=== PATIENT | female | born 1985 | race Caucasian/White ===

== ENCOUNTER 2020-12-23 21:59 | Inpatient (IN) ==
[2020-12-23] MEDS ORDERED: *HR* Atropine Sulfate 1 MG/10 ML SYRINGE ONE (23:41)
[2020-12-23] MEDS ORDERED: Naloxone 0.4 MG/ML INJ IVP PRN (23:51)
[2020-12-24 00:11] LABS: Mean Corpuscular Volume 84.3 fL (83.0-100.0)
[2020-12-24 00:13] LABS: Basophils % 0.3 %; Hematocrit 20.9 % (35.3-44.9); Hemoglobin 6.4 g/dL (11.5-15.4); Immature Granulocytes % 8.3 % (0-4); Immature Platelets 13.9 % (1.1-6.1); Lymphocytes # 0.3 K/mcL (0.6-4.6); Lymphocytes % 3.9 %; Mean Corpuscular HGB Conc 30.6 g/dL (31.6-35.5); Mean Corpuscular Hemoglobin 25.8 pg (28.0-33.3); Monocytes # 0.3 K/mcL (0.0-1.3); Neutrophils # 7.4 K/mcL (1.6-8.9); Red Blood Count 2.48 M/mcL (3.82-4.97); Red Cell Distribution Width 21.1 % (11.5-14.5); Segmented Neutrophils % 84.5 %; White Blood Count 8.7 K/mcL (4.3-11.1)
[2020-12-24 00:19] LABS: VBG Ionized Calcium 1.24 mmol/L (1.15-1.35)
[2020-12-24 00:19] LABS: Platelet Count 4 K/mcL (140-400)
[2020-12-24 00:20] LABS: Activated Partial Thrombo Time 53.6 Seconds (26.0-36.0)
[2020-12-24] MEDS: Piperacillin/Tazobactam 3.375 GM in 0.9 % Sodium Chloride Mini Bag 100 ML IVPB SCH ×4 (00:20→23:18)
[2020-12-24 00:27] LABS: Albumin 2.4 g/dL (3.5-5.7); Bilirubin,Total 5.2 mg/dL (0.3-1.0); Calcium 7.6 mg/dL (8.6-10.3); Globulin 2.5 g/dL (2.4-3.5); Magnesium 1.5 mg/dL (1.6-2.6); Phosphorous 2.6 mg/dL (2.7-4.5); Potassium 3.9 mEq/L (3.5-5.1); Total Protein 4.9 g/dL (6.4-8.9)
[2020-12-24 00:31] LABS: INR 21.8
[2020-12-24 00:46] LABS: Basophilic Stippling 1+ (Not Present); Macrocytosis Present (Not Present); Microcytosis Present (Not Present); Platelet Estimate Marked Decrease (Normal); Poikilocytosis 1+ (Not Present)
[2020-12-24 00:47] LABS: Anisocytosis 2+ (Not Present); Polychromasia 1+ (Not Present)
[2020-12-24] MEDS: Azithromycin 500 MG in 0.9 % Sodium Chloride 250 ML IVPB SCH (01:18)
[2020-12-24] MEDS ORDERED: Isovue-370 500 ML BOTTLE IVP ONE (01:24)
[2020-12-24] MEDS ORDERED: 0.9 % Sodium Chloride 250 ML ONE ×3 (01:28→21:30)
[2020-12-24] MEDS: Pantoprazole 40 MG VIAL IVP SCH ×2 (06:19→18:06)
[2020-12-24] MEDS ORDERED: Perflutren Lipid Microsphere 1.3 ML in 0.9 % Sodium Chloride 8.7 ML IVP PRN (06:23)
[2020-12-24 06:38] LABS: Red Cell Distribution Width 19.9 % (11.5-14.5)
[2020-12-24 06:39] LABS: VBG Ionized Calcium 1.18 mmol/L (1.15-1.35)
[2020-12-24 06:40] LABS: Hematocrit 25.1 % (35.3-44.9); Hemoglobin 7.6 g/dL (11.5-15.4); Immature Platelets 12.4 % (1.1-6.1); Mean Corpuscular HGB Conc 30.3 g/dL (31.6-35.5); Mean Corpuscular Hemoglobin 25.5 pg (28.0-33.3); Mean Corpuscular Volume 84.2 fL (83.0-100.0); Red Blood Count 2.98 M/mcL (3.82-4.97); White Blood Count 10.7 K/mcL (4.3-11.1)
[2020-12-24 06:43] LABS: Platelet Count 6 K/mcL (140-400)
[2020-12-24 06:52] LABS: INR 3.7; Prothrombin Time 41.3 Seconds (9.4-12.1)
[2020-12-24 06:53] LABS: Calcium 7.6 mg/dL (8.6-10.3); Magnesium 2.1 mg/dL (1.6-2.6); Phosphorous 2.9 mg/dL (2.7-4.5)
[2020-12-24 06:54] LABS: Activated Partial Thrombo Time 37.3 Seconds (26.0-36.0)
[2020-12-24 06:58] LABS: Anisocytosis 2+ (Not Present); Lymphocytes # 0.2 K/mcL (0.6-4.6); Microcytosis Present (Not Present); Neutrophils # 10.5 K/mcL (1.6-8.9)
[2020-12-24 06:59] LABS: Burr Cells 1+ (Not Present); Platelet Estimate Marked Decrease (Normal); Poikilocytosis 2+ (Not Present); Target Cells 1+ (Not Present)
[2020-12-24 16:43] LABS: Hemoglobin 7.8 g/dL (11.5-15.4)
[2020-12-24 16:45] LABS: Hematocrit 24.3 % (35.3-44.9); Immature Platelets 10.8 % (1.1-6.1); Mean Corpuscular HGB Conc 32.1 g/dL (31.6-35.5); Mean Corpuscular Hemoglobin 26.2 pg (28.0-33.3); Mean Corpuscular Volume 81.5 fL (83.0-100.0); Red Blood Count 2.98 M/mcL (3.82-4.97); Red Cell Distribution Width 19.6 % (11.5-14.5)
[2020-12-24 16:54] LABS: INR 1.9; Prothrombin Time 21.5 Seconds (9.4-12.1)
[2020-12-24 16:54] LABS: VBG Ionized Calcium 1.22 mmol/L (1.15-1.35)
[2020-12-24 16:56] LABS: Platelet Count 4 K/mcL (140-400)
[2020-12-24 16:57] LABS: Activated Partial Thrombo Time 29.7 Seconds (26.0-36.0)
[2020-12-24 17:04] LABS: Calcium 7.9 mg/dL (8.6-10.3); Magnesium 2.2 mg/dL (1.6-2.6); Phosphorous 2.7 mg/dL (2.7-4.5); Potassium 3.8 mEq/L (3.5-5.1)
[2020-12-24 17:10] LABS: Lymphocytes # 1.3 K/mcL (0.6-4.6); Neutrophils # 7.7 K/mcL (1.6-8.9)
[2020-12-24 17:11] LABS: Platelet Estimate Marked Decrease (Normal); Reactive Lymphocytes Present (Not Present)
[2020-12-24 21:53] LABS: VBG HCO3 14 mEq/L (21-27); VBG PCO2 27 mmHg (41-51); VBG PH 7.32 pH Units (7.32-7.42); VBG PO2 131 mmHg (25-50)
[2020-12-25] MEDS: Azithromycin 500 MG in 0.9 % Sodium Chloride 250 ML IVPB SCH (00:52)
[2020-12-25 04:17] LABS: VBG HCO3 14 mEq/L (21-27); VBG Ionized Calcium 1.21 mmol/L (1.15-1.35); VBG PCO2 29 mmHg (41-51); VBG PO2 63 mmHg (25-50)
[2020-12-25 04:30] LABS: INR 1.5; Prothrombin Time 16.7 Seconds (9.4-12.1)
[2020-12-25 04:39] LABS: Basophils % 0.1 %; Hemoglobin 7.6 g/dL (11.5-15.4); Red Cell Distribution Width 19.9 % (11.5-14.5)
[2020-12-25 04:40] LABS: Hematocrit 23.6 % (35.3-44.9); Immature Granulocytes % 1.4 % (0-4); Immature Platelets 11.9 % (1.1-6.1); Lymphocytes # 0.4 K/mcL (0.6-4.6); Lymphocytes % 5.7 %; Mean Corpuscular HGB Conc 32.2 g/dL (31.6-35.5); Mean Corpuscular Hemoglobin 26.2 pg (28.0-33.3); Mean Corpuscular Volume 81.4 fL (83.0-100.0); Monocytes # 0.4 K/mcL (0.0-1.3); Monocytes % 5.2 %; Neutrophils # 6.2 K/mcL (1.6-8.9); Segmented Neutrophils % 87.6 %; White Blood Count 7.1 K/mcL (4.3-11.1)
[2020-12-25 04:43] LABS: Platelet Count 3 K/mcL (140-400)
[2020-12-25 05:00] LABS: Magnesium 2.4 mg/dL (1.6-2.6); Phosphorous 3.4 mg/dL (2.7-4.5)
[2020-12-25] MEDS: Pantoprazole 40 MG VIAL IVP SCH ×2 (05:52→17:14)
[2020-12-25] MEDS: Piperacillin/Tazobactam 3.375 GM in 0.9 % Sodium Chloride Mini Bag 100 ML IVPB SCH ×2 (08:02→16:35)
[2020-12-25] MEDS: Meropenem 1,000 MG in 0.9 % Sodium Chloride Mini Bag 100 ML IVPB SCH (17:14)
[2020-12-26] MEDS: Azithromycin 500 MG in 0.9 % Sodium Chloride 250 ML IVPB SCH (00:23)
[2020-12-26 04:09] LABS: Hematocrit 22.3 % (35.3-44.9); Hemoglobin 7.2 g/dL (11.5-15.4); Immature Granulocytes % 1.1 % (0-4); Immature Platelets 8.5 % (1.1-6.1); Lymphocytes # 0.3 K/mcL (0.6-4.6); Lymphocytes % 6.9 %; Mean Corpuscular HGB Conc 32.3 g/dL (31.6-35.5); Mean Corpuscular Hemoglobin 25.7 pg (28.0-33.3); Mean Corpuscular Volume 79.6 fL (83.0-100.0); Monocytes # 0.3 K/mcL (0.0-1.3); Monocytes % 7.2 %; Neutrophils # 3.9 K/mcL (1.6-8.9); Segmented Neutrophils % 84.8 %; White Blood Count 4.6 K/mcL (4.3-11.1)
[2020-12-26 04:10] LABS: Platelet Count 4 K/mcL (140-400)
[2020-12-26 04:15] LABS: INR 1.4; Prothrombin Time 16.5 Seconds (9.4-12.1)
[2020-12-26 04:27] LABS: Albumin 2.5 g/dL (3.5-5.7); Albumin/Globulin Ratio 1.2 (1.1-2.2); Calcium 8.2 mg/dL (8.6-10.3); Globulin 2.1 g/dL (2.4-3.5); Magnesium 2.3 mg/dL (1.6-2.6); Phosphorous 3.2 mg/dL (2.7-4.5); Potassium 3.6 mEq/L (3.5-5.1); Total Protein 4.6 g/dL (6.4-8.9)
[2020-12-26] MEDS: Pantoprazole 40 MG VIAL IVP SCH ×2 (05:40→18:26)
[2020-12-26] MEDS: Meropenem 1,000 MG in 0.9 % Sodium Chloride Mini Bag 100 ML IVPB SCH ×2 (05:42→18:26)
[2020-12-26 09:17] LABS: VBG Ionized Calcium 1.26 mmol/L (1.15-1.35)
[2020-12-27] MEDS: Azithromycin 500 MG in 0.9 % Sodium Chloride 250 ML IVPB SCH (02:07)
[2020-12-27 05:13] LABS: Eosinophils % 0.2 %; Hemoglobin 7.2 g/dL (11.5-15.4); Immature Granulocytes % 1.2 % (0-4); Red Cell Distribution Width 19.9 % (11.5-14.5)
[2020-12-27 05:14] LABS: Hematocrit 22.4 % (35.3-44.9); Immature Platelets 7.8 % (1.1-6.1); Lymphocytes # 0.5 K/mcL (0.6-4.6); Lymphocytes % 8.9 %; Mean Corpuscular HGB Conc 32.1 g/dL (31.6-35.5); Mean Corpuscular Hemoglobin 25.4 pg (28.0-33.3); Mean Corpuscular Volume 78.9 fL (83.0-100.0); Monocytes # 0.6 K/mcL (0.0-1.3); Monocytes % 10.6 %; Red Blood Count 2.84 M/mcL (3.82-4.97); Segmented Neutrophils % 79.1 %
[2020-12-27 05:16] LABS: Alanine Aminotransferase 8 Units/L (7-52); Albumin 2.4 g/dL (3.5-5.7); Alkaline Phosphatase 111 Units/L (34-104); Aspartate Amino Transferase 13 Units/L (13-39); BUN/Creatinine Ratio 62 (6-26); Bilirubin,Total 6.1 mg/dL (0.3-1.0); Blood Urea Nitrogen 56 mg/dL (6-20); Calcium 7.9 mg/dL (8.6-10.3); Carbon Dioxide 15 mEq/L (23-29); Chloride 121 mEq/L (98-107); Globulin 2.4 g/dL (2.4-3.5); Glucose 112 mg/dL (70-105); Magnesium 1.6 mg/dL (1.6-2.6); Osmolality,Calculated 316 (280-300); Phosphorous 2.6 mg/dL (2.7-4.5); Sodium 145 mEq/L (136-145); Total Protein 4.8 g/dL (6.4-8.9); eGFR For African Americans > 60 (> 60); eGFR For Non-African Americans > 60 (> 60)
[2020-12-27 05:19] LABS: Platelet Count 5 K/mcL (140-400)
[2020-12-27 05:20] LABS: Neutrophils # 4.8 K/mcL (1.6-8.9)
[2020-12-27 05:22] LABS: INR 1.6; Prothrombin Time 18.3 Seconds (9.4-12.1)
[2020-12-27] MEDS ORDERED: Potassium Phosphate 44 MEQ in 0.9 % Sodium Chloride 250 ML IVPB ONE (05:23)
[2020-12-27 05:57] LABS: Anisocytosis 1+ (Not Present); Platelet Estimate Marked Decrease (Normal)
[2020-12-27] MEDS: Meropenem 1,000 MG in 0.9 % Sodium Chloride Mini Bag 100 ML IVPB SCH (06:21)
[2020-12-27] MEDS: Pantoprazole 40 MG VIAL IVP SCH ×3 (06:21→20:24)
[2020-12-27] MEDS ORDERED: Gentamicin 350 MG in 0.9 % Sodium Chloride 100 ML IVPB SCH (14:00)
[2020-12-27] MEDS ORDERED: Perflutren Lipid Microsphere 1.3 ML in 0.9 % Sodium Chloride 8.7 ML IVP PRN (17:57)
[2020-12-27] MEDS ORDERED: Naloxone 0.4 MG/ML INJ IVP PRN (17:57)
[2020-12-27] MEDS ORDERED: Ertapenem 1,000 MG in 0.9 % Sodium Chloride Mini Bag 100 ML IVPB SCH (18:00)
[2020-12-28 02:25] LABS: Hemoglobin 6.9 g/dL (11.5-15.4); Mean Corpuscular Volume 78.9 fL (83.0-100.0)
[2020-12-28 02:27] LABS: Hematocrit 20.9 % (35.3-44.9); Immature Platelets 19.4 % (1.1-6.1); Red Blood Count 2.65 M/mcL (3.82-4.97); Red Cell Distribution Width 19.9 % (11.5-14.5); White Blood Count 6.1 K/mcL (4.3-11.1)
[2020-12-28 02:32] LABS: Platelet Count 5 K/mcL (140-400)
[2020-12-28 02:38] LABS: INR 1.6; Prothrombin Time 18.5 Seconds (9.4-12.1)
[2020-12-28 02:44] LABS: BUN/Creatinine Ratio 48 (6-26); Blood Urea Nitrogen 33 mg/dL (6-20); Calcium 7.2 mg/dL (8.6-10.3); Carbon Dioxide 15 mEq/L (23-29); Chloride 114 mEq/L (98-107); Glucose 92 mg/dL (70-105); Osmolality,Calculated 291 (280-300); Potassium 3.2 mEq/L (3.5-5.1); Sodium 137 mEq/L (136-145); eGFR For African Americans > 60 (> 60); eGFR For Non-African Americans > 60 (> 60)
[2020-12-28 04:06] LABS: Gentamicin,Random 5.4 mcg/mL
[2020-12-28] MEDS: Pantoprazole 40 MG VIAL IVP SCH ×2 (04:44→18:07)
[2020-12-28] MEDS ORDERED: Potassium Chloride 40 MEQ, Lidocaine 1% 2 ML in 0.9 % Sodium Chloride 500 ML IVPB ONE (07:54)
[2020-12-28] MEDS ORDERED: Isovue-370 500 ML BOTTLE IVP ONE (13:51)
[2020-12-28] MEDS ORDERED: 0.9 % Sodium Chloride 250 ML ONE (13:57)
[2020-12-28] MEDS ORDERED: Gentamicin 350 MG in 0.9 % Sodium Chloride 100 ML IVPB SCH (14:00)
[2020-12-28] MEDS: Ertapenem 1,000 MG in 0.9 % Sodium Chloride Mini Bag 100 ML IVPB SCH (18:08)
[2020-12-28] MEDS ORDERED: Saline Nasal Spray 44 ML BOTTLE NS PRN (21:55)
[2020-12-28] MEDS: QUEtiapine Fumarate 100 MG TABLET PO SCH (23:00)
[2020-12-29] MEDS: Pantoprazole 40 MG VIAL IVP SCH (06:29)
[2020-12-29 07:50] LABS: Eosinophils % 0.8 %; Immature Granulocytes % 1.5 % (0-4); Red Cell Distribution Width 18.6 % (11.5-14.5); White Blood Count 4.7 K/mcL (4.3-11.1)
[2020-12-29 07:51] LABS: Hematocrit 21.7 % (35.3-44.9); Hemoglobin 7.2 g/dL (11.5-15.4); Immature Platelets 23.7 % (1.1-6.1); Lymphocytes # 0.4 K/mcL (0.6-4.6); Lymphocytes % 9.3 %; Mean Corpuscular HGB Conc 33.2 g/dL (31.6-35.5); Mean Corpuscular Hemoglobin 26.5 pg (28.0-33.3); Mean Corpuscular Volume 79.8 fL (83.0-100.0); Monocytes # 0.6 K/mcL (0.0-1.3); Red Blood Count 2.72 M/mcL (3.82-4.97); Segmented Neutrophils % 75.4 %
[2020-12-29 08:00] LABS: INR 1.6; Prothrombin Time 18.7 Seconds (9.4-12.1)
[2020-12-29 08:11] LABS: BUN/Creatinine Ratio 28 (6-26); Blood Urea Nitrogen 19 mg/dL (6-20); Calcium 7.2 mg/dL (8.6-10.3); Carbon Dioxide 15 mEq/L (23-29); Chloride 112 mEq/L (98-107); Glucose 97 mg/dL (70-105); Osmolality,Calculated 280 (280-300); Potassium 3.5 mEq/L (3.5-5.1); Sodium 134 mEq/L (136-145); eGFR For African Americans > 60 (> 60); eGFR For Non-African Americans > 60 (> 60)
[2020-12-29 08:13] LABS: Neutrophils # 3.5 K/mcL (1.6-8.9)
[2020-12-29 08:14] LABS: Platelet Count 8 K/mcL (140-400)
[2020-12-29 08:15] LABS: Anisocytosis 1+ (Not Present); Hypochromasia Present (Not Present); Platelet Estimate Marked Decrease (Normal)
[2020-12-29 08:16] LABS: Poikilocytosis 1+ (Not Present)
[2020-12-29] MEDS: Gentamicin 350 MG in 0.9 % Sodium Chloride 100 ML IVPB SCH (15:32)
[2020-12-29] MEDS: Ertapenem 1,000 MG in 0.9 % Sodium Chloride Mini Bag 100 ML IVPB SCH (17:36)
[2020-12-29] MEDS ORDERED: Ibuprofen 800 MG TABLET PO PRN (21:53)
[2020-12-29] MEDS: QUEtiapine Fumarate 100 MG TABLET PO SCH (22:06)
[2020-12-30 03:26] LABS: Eosinophils # 0.1 K/mcL (0.0-0.6); Eosinophils % 1.3 %; Hematocrit 21.1 % (35.3-44.9); Hemoglobin 6.8 g/dL (11.5-15.4); Immature Granulocytes % 0.7 % (0-4); Lymphocytes # 0.5 K/mcL (0.6-4.6); Lymphocytes % 7.5 %; Mean Corpuscular HGB Conc 32.2 g/dL (31.6-35.5); Mean Corpuscular Hemoglobin 26.4 pg (28.0-33.3); Mean Corpuscular Volume 81.8 fL (83.0-100.0); Monocytes # 0.5 K/mcL (0.0-1.3); Monocytes % 8.9 %; Neutrophils # 4.9 K/mcL (1.6-8.9); Red Blood Count 2.58 M/mcL (3.82-4.97); Segmented Neutrophils % 81.6 %
[2020-12-30 03:28] LABS: Platelet Count 10 K/mcL (140-400)
[2020-12-30 03:48] LABS: BUN/Creatinine Ratio 23 (6-26); Blood Urea Nitrogen 15 mg/dL (6-20); Calcium 7.4 mg/dL (8.6-10.3); Carbon Dioxide 13 mEq/L (23-29); Chloride 112 mEq/L (98-107); Glucose 70 mg/dL (70-105); Osmolality,Calculated 277 (280-300); Potassium 3.7 mEq/L (3.5-5.1); Sodium 134 mEq/L (136-145); eGFR For African Americans > 60 (> 60); eGFR For Non-African Americans > 60 (> 60)
[2020-12-30 03:52] LABS: INR 1.6; Prothrombin Time 17.7 Seconds (9.4-12.1)
[2020-12-30] MEDS ORDERED: 0.9 % Sodium Chloride 250 ML ONE (10:14)
[2020-12-30] MEDS ORDERED: Isovue-370 500 ML BOTTLE IVP ONE (14:23)
[2020-12-30 15:33] LABS: Hemoglobin 7.8 g/dL (11.5-15.4)
[2020-12-30 15:35] LABS: Hematocrit 24.2 % (35.3-44.9)
[2020-12-30] MEDS: Ertapenem 1,000 MG in 0.9 % Sodium Chloride Mini Bag 100 ML IVPB SCH (17:54)
[2020-12-30] MEDS: QUEtiapine Fumarate 100 MG TABLET PO SCH (19:50)
[2020-12-31 04:24] LABS: Basophils % 0.1 %; Eosinophils % 0.4 %; Hematocrit 21.7 % (35.3-44.9); Hemoglobin 7.2 g/dL (11.5-15.4); Immature Granulocytes % 0.6 % (0-4); Immature Platelets 25.2 % (1.1-6.1); Lymphocytes # 0.5 K/mcL (0.6-4.6); Lymphocytes % 6.5 %; Mean Corpuscular HGB Conc 33.2 g/dL (31.6-35.5); Mean Corpuscular Hemoglobin 26.9 pg (28.0-33.3); Monocytes # 0.6 K/mcL (0.0-1.3); Monocytes % 7.9 %; Neutrophils # 6.1 K/mcL (1.6-8.9); Red Blood Count 2.68 M/mcL (3.82-4.97); Red Cell Distribution Width 18.3 % (11.5-14.5); Segmented Neutrophils % 84.5 %; White Blood Count 7.2 K/mcL (4.3-11.1)
[2020-12-31 04:26] LABS: Platelet Count 11 K/mcL (140-400)
[2020-12-31 12:34] LABS: BUN/Creatinine Ratio 16 (6-26); Blood Urea Nitrogen 13 mg/dL (6-20); Calcium 7.4 mg/dL (8.6-10.3); Carbon Dioxide 14 mEq/L (23-29); Chloride 108 mEq/L (98-107); Glucose 83 mg/dL (70-105); Osmolality,Calculated 267 (280-300); Sodium 129 mEq/L (136-145); eGFR For African Americans > 60 (> 60); eGFR For Non-African Americans > 60 (> 60)
[2020-12-31] MEDS: Gentamicin 350 MG in 0.9 % Sodium Chloride 100 ML IVPB SCH (14:13)
[2020-12-31] MEDS: Ertapenem 1,000 MG in 0.9 % Sodium Chloride Mini Bag 100 ML IVPB SCH (18:15)
[2020-12-31] MEDS: QUEtiapine Fumarate 100 MG TABLET PO SCH (20:36)
[2021-01-01 10:41] LABS: Immature Granulocytes % 0.5 % (0-4)
[2021-01-01 10:43] LABS: Basophils % 0.1 %; Eosinophils % 0.5 %; Hemoglobin 6.8 g/dL (11.5-15.4); Lymphocytes # 0.5 K/mcL (0.6-4.6); Lymphocytes % 6.5 %; Mean Corpuscular HGB Conc 32.4 g/dL (31.6-35.5); Mean Corpuscular Hemoglobin 26.4 pg (28.0-33.3); Mean Corpuscular Volume 81.4 fL (83.0-100.0); Monocytes # 0.5 K/mcL (0.0-1.3); Monocytes % 6.4 %; Neutrophils # 6.7 K/mcL (1.6-8.9); Red Blood Count 2.58 M/mcL (3.82-4.97); Red Cell Distribution Width 18.6 % (11.5-14.5); White Blood Count 7.8 K/mcL (4.3-11.1)
[2021-01-01 10:59] LABS: INR 1.8; Prothrombin Time 20.4 Seconds (9.4-12.1)
[2021-01-01 11:00] LABS: Albumin 2.3 g/dL (3.5-5.7); Albumin/Globulin Ratio 0.9 (1.1-2.2); Bilirubin,Direct 4.1 mg/dL (0.0-0.2); Bilirubin,Indirect 2.2 mg/dL (0.0-1.0); Bilirubin,Total 6.3 mg/dL (0.3-1.0); Globulin 2.7 g/dL (2.4-3.5)
[2021-01-01 11:39] LABS: BUN/Creatinine Ratio 19 (6-26); Blood Urea Nitrogen 13 mg/dL (6-20); Calcium 7.4 mg/dL (8.6-10.3); Carbon Dioxide 14 mEq/L (23-29); Chloride 111 mEq/L (98-107); Glucose 89 mg/dL (70-105); Osmolality,Calculated 276 (280-300); Sodium 133 mEq/L (136-145); eGFR For African Americans > 60 (> 60); eGFR For Non-African Americans > 60 (> 60)
[2021-01-01 11:48] LABS: Platelet Count 13 K/mcL (140-400)
[2021-01-01 11:51] LABS: Platelet Estimate Marked Decrease (Normal)
[2021-01-01 11:52] LABS: Anisocytosis 1+ (Not Present); Hypochromasia Present (Not Present); Poikilocytosis 1+ (Not Present)
[2021-01-01] MEDS ORDERED: 0.9 % Sodium Chloride 250 ML ONE (15:23)
[2021-01-01] MEDS: Ertapenem 1,000 MG in 0.9 % Sodium Chloride Mini Bag 100 ML IVPB SCH (18:12)
[2021-01-01] MEDS: QUEtiapine Fumarate 100 MG TABLET PO SCH (22:09)
[2021-01-02 03:21] LABS: Basophils % 0.1 %; Eosinophils % 0.3 %; Immature Granulocytes % 0.6 % (0-4); Lymphocytes % 4.8 %
[2021-01-02 03:23] LABS: Hematocrit 26.3 % (35.3-44.9); Immature Platelets 19.5 % (1.1-6.1); Lymphocytes # 0.5 K/mcL (0.6-4.6); Mean Corpuscular HGB Conc 34.2 g/dL (31.6-35.5); Mean Corpuscular Volume 81.9 fL (83.0-100.0); Monocytes # 0.6 K/mcL (0.0-1.3); Monocytes % 6.2 %; Neutrophils # 8.9 K/mcL (1.6-8.9); Red Blood Count 3.21 M/mcL (3.82-4.97); Red Cell Distribution Width 17.4 % (11.5-14.5); White Blood Count 10.1 K/mcL (4.3-11.1)
[2021-01-02 03:28] LABS: Platelet Count 16 K/mcL (140-400)
[2021-01-02 03:33] LABS: INR 1.7; Prothrombin Time 19.5 Seconds (9.4-12.1)
[2021-01-02 03:37] LABS: BUN/Creatinine Ratio 16 (6-26); Blood Urea Nitrogen 11 mg/dL (6-20); Calcium 7.5 mg/dL (8.6-10.3); Carbon Dioxide 14 mEq/L (23-29); Chloride 111 mEq/L (98-107); Glucose 98 mg/dL (70-105); Osmolality,Calculated 271 (280-300); Potassium 3.8 mEq/L (3.5-5.1); Sodium 131 mEq/L (136-145); eGFR For African Americans > 60 (> 60); eGFR For Non-African Americans > 60 (> 60)
[2021-01-02] MEDS ORDERED: Oxymetazoline Nasal SPRAY BOTTLE NS PRN (11:28)
[2021-01-02] MEDS: Gentamicin 350 MG in 0.9 % Sodium Chloride 100 ML IVPB SCH (13:34)
[2021-01-02] MEDS: Ertapenem 1,000 MG in 0.9 % Sodium Chloride Mini Bag 100 ML IVPB SCH (17:24)
[2021-01-02] MEDS: QUEtiapine Fumarate 100 MG TABLET PO SCH (20:31)
[2021-01-03 03:07] LABS: Basophils % 0.1 %; Eosinophils % 0.3 %; Hemoglobin 8.3 g/dL (11.5-15.4); Mean Corpuscular Hemoglobin 27.8 pg (28.0-33.3); Red Blood Count 2.99 M/mcL (3.82-4.97)
[2021-01-03 03:09] LABS: Immature Granulocytes % 0.5 % (0-4); Immature Platelets 21.2 % (1.1-6.1); Lymphocytes # 0.5 K/mcL (0.6-4.6); Lymphocytes % 6.8 %; Mean Corpuscular HGB Conc 33.2 g/dL (31.6-35.5); Mean Corpuscular Volume 83.6 fL (83.0-100.0); Monocytes # 0.5 K/mcL (0.0-1.3); Monocytes % 6.8 %; Neutrophils # 6.3 K/mcL (1.6-8.9); Red Cell Distribution Width 17.7 % (11.5-14.5); Segmented Neutrophils % 85.5 %; White Blood Count 7.4 K/mcL (4.3-11.1)
[2021-01-03 03:14] LABS: INR 1.7; Platelet Count 19 K/mcL (140-400); Prothrombin Time 19.6 Seconds (9.4-12.1)
[2021-01-03 03:18] LABS: BUN/Creatinine Ratio 15 (6-26); Blood Urea Nitrogen 11 mg/dL (6-20); Calcium 7.4 mg/dL (8.6-10.3); Carbon Dioxide 14 mEq/L (23-29); Chloride 111 mEq/L (98-107); Glucose 103 mg/dL (70-105); Osmolality,Calculated 276 (280-300); Potassium 3.8 mEq/L (3.5-5.1); Sodium 133 mEq/L (136-145); eGFR For African Americans > 60 (> 60); eGFR For Non-African Americans > 60 (> 60)
[2021-01-03] MEDS: Ertapenem 1,000 MG in 0.9 % Sodium Chloride Mini Bag 100 ML IVPB SCH (16:56)
[2021-01-03] MEDS: *HR* LORazepam 0.5 MG TABLET PO PRN (18:23)
[2021-01-03] MEDS: QUEtiapine Fumarate 100 MG TABLET PO SCH (19:52)
[2021-01-04] MEDS: Multivit/Ca/Min/Fe/FA 1 TAB TABLET PO SCH (08:41)
[2021-01-04] MEDS: *HR* LORazepam 0.5 MG TABLET PO PRN (08:44)
[2021-01-04] MEDS: Menthol 1 EACH LOZENGE PO PRN (14:39)
[2021-01-04] MEDS: diazePAM 5 MG TABLET PO PRN ×2 (14:39→22:48)
[2021-01-04] MEDS: Ertapenem 1,000 MG in 0.9 % Sodium Chloride Mini Bag 100 ML IVPB SCH (17:02)
[2021-01-04] MEDS: levoFLOXacin 750 MG/150 ML 750 MG/150 ML BAG IVPB SCH (18:08)
[2021-01-04] MEDS: QUEtiapine Fumarate 100 MG TABLET PO SCH (19:45)
[2021-01-05] MEDS: Ipratropium/Albuterol Neb 3 ML IH PRN ×3 (00:33→22:22)
[2021-01-05 04:24] LABS: Basophils % 0.3 %; Eosinophils % 0.3 %; Hematocrit 22.7 % (35.3-44.9); Hemoglobin 7.4 g/dL (11.5-15.4); Immature Granulocytes % 0.8 % (0-4); Immature Platelets 18.2 % (1.1-6.1); Lymphocytes # 0.4 K/mcL (0.6-4.6); Lymphocytes % 10.5 %; Mean Corpuscular HGB Conc 32.6 g/dL (31.6-35.5); Mean Corpuscular Hemoglobin 27.4 pg (28.0-33.3); Mean Corpuscular Volume 84.1 fL (83.0-100.0); Monocytes # 0.4 K/mcL (0.0-1.3); Monocytes % 10.7 %; Nucleated Red Blood Cells 0.5 /100 WBC (0); Red Cell Distribution Width 17.7 % (11.5-14.5); Segmented Neutrophils % 77.4 %; White Blood Count 3.9 K/mcL (4.3-11.1)
[2021-01-05 04:28] LABS: Platelet Count 17 K/mcL (140-400)
[2021-01-05 04:43] LABS: BUN/Creatinine Ratio 12 (6-26); Blood Urea Nitrogen 8 mg/dL (6-20); Calcium 7.2 mg/dL (8.6-10.3); Carbon Dioxide 15 mEq/L (23-29); Chloride 109 mEq/L (98-107); Glucose 82 mg/dL (70-105); Osmolality,Calculated 269 (280-300); Potassium 3.5 mEq/L (3.5-5.1); Sodium 131 mEq/L (136-145); eGFR For African Americans > 60 (> 60); eGFR For Non-African Americans > 60 (> 60)
[2021-01-05 05:07] LABS: Platelet Estimate Slight Decrease (Normal)
[2021-01-05] MEDS: Multivit/Ca/Min/Fe/FA 1 TAB TABLET PO SCH (07:57)
[2021-01-05] MEDS: diazePAM 5 MG TABLET PO PRN ×2 (11:30→20:09)
[2021-01-05] MEDS: Ertapenem 1,000 MG in 0.9 % Sodium Chloride Mini Bag 100 ML IVPB SCH (16:30)
[2021-01-05] MEDS: levoFLOXacin 750 MG/150 ML 750 MG/150 ML BAG IVPB SCH (16:30)
[2021-01-05 17:44] LABS: Albumin 2.4 g/dL (3.5-5.7); Albumin/Globulin Ratio 0.7 (1.1-2.2); Bilirubin,Direct 3.2 mg/dL (0.0-0.2); Bilirubin,Indirect 2.6 mg/dL (0.0-1.0); Bilirubin,Total 5.8 mg/dL (0.3-1.0); Globulin 3.3 g/dL (2.4-3.5); Total Protein 5.7 g/dL (6.4-8.9)
[2021-01-05] MEDS: QUEtiapine Fumarate 100 MG TABLET PO SCH (20:09)
[2021-01-06] MEDS: Multivit/Ca/Min/Fe/FA 1 TAB TABLET PO SCH (07:38)
[2021-01-06] MEDS: diazePAM 5 MG TABLET PO PRN ×3 (07:40→23:00)
[2021-01-06] MEDS ORDERED: Lidocaine -MPF 1% 5 ML AMPUL INFILT ONE (09:53)
[2021-01-06] MEDS: Ipratropium/Albuterol Neb 3 ML IH SCH ×2 (10:13→16:55)
[2021-01-06 11:12] LABS: Basophils % 0.5 %; Hematocrit 19.6 % (35.3-44.9); Hemoglobin 6.5 g/dL (11.5-15.4); Lymphocytes # 0.3 K/mcL (0.6-4.6); Mean Corpuscular HGB Conc 33.2 g/dL (31.6-35.5); Mean Corpuscular Hemoglobin 27.7 pg (28.0-33.3); Mean Corpuscular Volume 83.4 fL (83.0-100.0); Monocytes # 0.2 K/mcL (0.0-1.3); Monocytes % 10.6 %; Red Blood Count 2.35 M/mcL (3.82-4.97); Red Cell Distribution Width 17.8 % (11.5-14.5); Segmented Neutrophils % 73.9 %; White Blood Count 2.1 K/mcL (4.3-11.1)
[2021-01-06 11:14] LABS: Neutrophils # 1.6 K/mcL (1.6-8.9)
[2021-01-06 11:16] LABS: Platelet Count 20 K/mcL (140-400)
[2021-01-06] MEDS: Menthol 1 EACH LOZENGE PO PRN ×2 (11:19→18:26)
[2021-01-06 11:32] LABS: BUN/Creatinine Ratio 10 (6-26); Blood Urea Nitrogen 9 mg/dL (6-20); Calcium 7.3 mg/dL (8.6-10.3); Carbon Dioxide 15 mEq/L (23-29); Chloride 110 mEq/L (98-107); Glucose 110 mg/dL (70-105); Osmolality,Calculated 275 (280-300); Potassium 3.3 mEq/L (3.5-5.1); Sodium 133 mEq/L (136-145); eGFR For African Americans > 60 (> 60); eGFR For Non-African Americans > 60 (> 60)
[2021-01-06 12:36] LABS: Adenovirus Not Detected (Not Detect); Coronavirus 229E Not Detected (Not Detect); Coronavirus HKU1 Not Detected (Not Detect); Coronavirus NL63 Not Detected (Not Detect); Coronavirus OC43 Not Detected (Not Detect)
[2021-01-06] MEDS ORDERED: 0.9 % Sodium Chloride 250 ML ONE ×2 (12:36→16:02)
[2021-01-06 12:37] LABS: Bordetella Pertussis Not Detected (Not Detect); Chlamydophila pneumoniae Not Detected (Not Detect); Human Metapneumovirus Not Detected (Not Detect); Human Rhinovirus/Enterovirus Not Detected (Not Detect); Influenza A Subtype 2009 H1 Not Detected (Not Detect); Influenza B Not Detected (Not Detect); Mycoplasma pneumoniae Not Detected (Not Detect); Parainfluenza Virus 1 Not Detected (Not Detect); Parainfluenza Virus 2 Not Detected (Not Detect); Parainfluenza Virus 3 Not Detected (Not Detect); Parainfluenza Virus 4 Not Detected (Not Detect); Respiratory Syncytial Virus Not Detected (Not Detect)
[2021-01-06 12:43] LABS: SARS-CoV-2 DETECTED (Not Detect)
[2021-01-06] MEDS ORDERED: Potassium Chloride 40 MEQ, Lidocaine 1% 2 ML in 0.9 % Sodium Chloride 500 ML IVPB ONE (17:00)
[2021-01-06] MEDS: Ertapenem 1,000 MG in 0.9 % Sodium Chloride Mini Bag 100 ML IVPB SCH (18:02)
[2021-01-06] MEDS: levoFLOXacin 750 MG/150 ML 750 MG/150 ML BAG IVPB SCH (18:07)
[2021-01-06] MEDS: Pantoprazole 40 MG VIAL IVP SCH (18:13)
[2021-01-06] MEDS ORDERED: Ipratropium 1 PUFF INHALER IH ONE (18:52)
[2021-01-06] MEDS: QUEtiapine Fumarate 100 MG TABLET PO SCH (19:57)
[2021-01-06] MEDS: Ipratropium 1 PUFF INHALER IH SCH (22:21)
[2021-01-07] MEDS: Ipratropium 1 PUFF INHALER IH SCH ×4 (03:11→20:38)
[2021-01-07] MEDS: Pantoprazole 40 MG VIAL IVP SCH ×2 (06:45→19:52)
[2021-01-07] MEDS ORDERED: Nitroglycerin 0.4 MG TAB.SUBL SL PRN (08:44)
[2021-01-07] MEDS: Multivit/Ca/Min/Fe/FA 1 TAB TABLET PO SCH (11:29)
[2021-01-07 14:43] LABS: Basophils % 0.5 %
[2021-01-07 14:45] LABS: Hematocrit 21.4 % (35.3-44.9); Hemoglobin 6.9 g/dL (11.5-15.4); Lymphocytes # 0.5 K/mcL (0.6-4.6); Lymphocytes % 23.8 %; Mean Corpuscular HGB Conc 32.2 g/dL (31.6-35.5); Mean Corpuscular Hemoglobin 27.5 pg (28.0-33.3); Mean Corpuscular Volume 85.3 fL (83.0-100.0); Monocytes % 11.7 %; Neutrophils # 1.3 K/mcL (1.6-8.9); Red Blood Count 2.51 M/mcL (3.82-4.97); Red Cell Distribution Width 17.6 % (11.5-14.5); White Blood Count 2.1 K/mcL (4.3-11.1)
[2021-01-07 14:52] LABS: Monocytes # 0.3 K/mcL (0.0-1.3); Platelet Count 17 K/mcL (140-400)
[2021-01-07 15:00] LABS: BUN/Creatinine Ratio 9 (6-26); Blood Urea Nitrogen 8 mg/dL (6-20); Calcium 7.5 mg/dL (8.6-10.3); Carbon Dioxide 15 mEq/L (23-29); Chloride 112 mEq/L (98-107); Glucose 88 mg/dL (70-105); Osmolality,Calculated 274 (280-300); Potassium 3.9 mEq/L (3.5-5.1); Sodium 133 mEq/L (136-145); eGFR For African Americans > 60 (> 60); eGFR For Non-African Americans > 60 (> 60)
[2021-01-07 15:21] LABS: Platelet Estimate Marked Decrease (Normal)
[2021-01-07] MEDS: diazePAM 5 MG TABLET PO PRN (16:41)
[2021-01-07] MEDS: Ertapenem 1,000 MG in 0.9 % Sodium Chloride Mini Bag 100 ML IVPB SCH (16:41)
[2021-01-07] MEDS: levoFLOXacin 750 MG/150 ML 750 MG/150 ML BAG IVPB SCH (18:02)
[2021-01-07] MEDS: QUEtiapine Fumarate 100 MG TABLET PO SCH (19:53)
[2021-01-07] MEDS: Benzonatate 100 MG CAPSULE PO PRN (20:00)
[2021-01-08] MEDS: diazePAM 5 MG TABLET PO PRN ×3 (00:46→21:18)
[2021-01-08 01:11] LABS: Hemoglobin 7.3 g/dL (11.5-15.4); Red Cell Distribution Width 17.6 % (11.5-14.5)
[2021-01-08 01:13] LABS: Basophils % 0.5 %; Eosinophils % 0.5 %; Hematocrit 22.8 % (35.3-44.9); Immature Granulocytes % 0.5 % (0-4); Lymphocytes # 0.4 K/mcL (0.6-4.6); Lymphocytes % 22.5 %; Mean Corpuscular Hemoglobin 27.1 pg (28.0-33.3); Mean Corpuscular Volume 84.8 fL (83.0-100.0); Monocytes # 0.2 K/mcL (0.0-1.3); Monocytes % 9.9 %; Neutrophils # 1.2 K/mcL (1.6-8.9); Red Blood Count 2.69 M/mcL (3.82-4.97); Segmented Neutrophils % 66.1 %; White Blood Count 1.8 K/mcL (4.3-11.1)
[2021-01-08 01:24] LABS: BUN/Creatinine Ratio 8 (6-26); Blood Urea Nitrogen 7 mg/dL (6-20); C-Reactive Protein 40 mg/L (Less than 10); Calcium 7.1 mg/dL (8.6-10.3); Carbon Dioxide 14 mEq/L (23-29); Chloride 111 mEq/L (98-107); Glucose 82 mg/dL (70-105); Osmolality,Calculated 271 (280-300); Potassium 3.5 mEq/L (3.5-5.1); Sodium 132 mEq/L (136-145); eGFR For African Americans > 60 (> 60); eGFR For Non-African Americans > 60 (> 60)
[2021-01-08 01:30] LABS: Platelet Count 17 K/mcL (140-400)
[2021-01-08] MEDS: Ipratropium 1 PUFF INHALER IH SCH ×4 (04:06→20:36)
[2021-01-08] MEDS: Pantoprazole 40 MG VIAL IVP SCH ×2 (06:02→18:15)
[2021-01-08] MEDS: Benzonatate 100 MG CAPSULE PO PRN ×2 (06:26→21:16)
[2021-01-08] MEDS: Multivit/Ca/Min/Fe/FA 1 TAB TABLET PO SCH (09:07)
[2021-01-08] MEDS: *HR* OxyCODONE/APAP 5/325 TABLET PO PRN ×2 (11:56→21:16)
[2021-01-08] MEDS: Ertapenem 1,000 MG in 0.9 % Sodium Chloride Mini Bag 100 ML IVPB SCH (18:23)
[2021-01-08] MEDS: levoFLOXacin 750 MG/150 ML 750 MG/150 ML BAG IVPB SCH (18:25)
[2021-01-08] MEDS: QUEtiapine Fumarate 100 MG TABLET PO SCH (21:16)
[2021-01-09] MEDS: Ipratropium 1 PUFF INHALER IH SCH ×4 (03:19→20:27)
[2021-01-09 04:49] LABS: Basophils % 0.5 %; Eosinophils % 0.9 %; Hematocrit 23.9 % (35.3-44.9); Hemoglobin 7.7 g/dL (11.5-15.4); Immature Granulocytes % 0.9 % (0-4); Lymphocytes # 0.5 K/mcL (0.6-4.6); Lymphocytes % 21.7 %; Mean Corpuscular HGB Conc 32.2 g/dL (31.6-35.5); Mean Corpuscular Hemoglobin 27.5 pg (28.0-33.3); Mean Corpuscular Volume 85.4 fL (83.0-100.0); Monocytes # 0.2 K/mcL (0.0-1.3); Monocytes % 8.5 %; Neutrophils # 1.4 K/mcL (1.6-8.9); Red Cell Distribution Width 17.7 % (11.5-14.5); Segmented Neutrophils % 67.5 %; White Blood Count 2.1 K/mcL (4.3-11.1)
[2021-01-09 04:52] LABS: Platelet Count 21 K/mcL (140-400)
[2021-01-09 05:04] LABS: BUN/Creatinine Ratio 10 (6-26); Blood Urea Nitrogen 9 mg/dL (6-20); Calcium 7.3 mg/dL (8.6-10.3); Carbon Dioxide 16 mEq/L (23-29); Chloride 111 mEq/L (98-107); Glucose 75 mg/dL (70-105); Osmolality,Calculated 273 (280-300); Potassium 3.7 mEq/L (3.5-5.1); Sodium 133 mEq/L (136-145); eGFR For African Americans > 60 (> 60); eGFR For Non-African Americans > 60 (> 60)
[2021-01-09] MEDS: Pantoprazole 40 MG VIAL IVP SCH ×2 (05:48→17:13)
[2021-01-09] MEDS: Multivit/Ca/Min/Fe/FA 1 TAB TABLET PO SCH (07:27)
[2021-01-09] MEDS: *HR* OxyCODONE/APAP 5/325 TABLET PO PRN ×2 (07:27→17:56)
[2021-01-09] MEDS: diazePAM 5 MG TABLET PO PRN ×2 (07:38→20:20)
[2021-01-09] MEDS: levoFLOXacin 750 MG/150 ML 750 MG/150 ML BAG IVPB SCH (17:13)
[2021-01-09] MEDS: Ertapenem 1,000 MG in 0.9 % Sodium Chloride Mini Bag 100 ML IVPB SCH (17:14)
[2021-01-09] MEDS: Benzonatate 100 MG CAPSULE PO PRN (17:56)
[2021-01-09] MEDS: QUEtiapine Fumarate 100 MG TABLET PO SCH (20:20)
[2021-01-10 01:49] LABS: Basophils % 0.4 %; Eosinophils % 0.4 %; Mean Corpuscular Volume 84.8 fL (83.0-100.0)
[2021-01-10 01:51] LABS: Hematocrit 23.5 % (35.3-44.9); Hemoglobin 7.4 g/dL (11.5-15.4); Immature Granulocytes % 0.4 % (0-4); Immature Platelets 9.4 % (1.1-6.1); Lymphocytes # 0.6 K/mcL (0.6-4.6); Lymphocytes % 25.1 %; Mean Corpuscular HGB Conc 31.5 g/dL (31.6-35.5); Mean Corpuscular Hemoglobin 26.7 pg (28.0-33.3); Monocytes # 0.2 K/mcL (0.0-1.3); Neutrophils # 1.6 K/mcL (1.6-8.9); Red Blood Count 2.77 M/mcL (3.82-4.97); Red Cell Distribution Width 17.7 % (11.5-14.5); Segmented Neutrophils % 66.7 %; White Blood Count 2.4 K/mcL (4.3-11.1)
[2021-01-10 01:55] LABS: Platelet Count 20 K/mcL (140-400)
[2021-01-10 02:10] LABS: BUN/Creatinine Ratio 10 (6-26); Blood Urea Nitrogen 9 mg/dL (6-20); Carbon Dioxide 14 mEq/L (23-29); Chloride 112 mEq/L (98-107); Glucose 75 mg/dL (70-105); Osmolality,Calculated 273 (280-300); Potassium 3.4 mEq/L (3.5-5.1); Sodium 133 mEq/L (136-145); eGFR For African Americans > 60 (> 60); eGFR For Non-African Americans > 60 (> 60)
[2021-01-10] MEDS: Ipratropium 1 PUFF INHALER IH SCH ×4 (04:35→21:46)
[2021-01-10] MEDS: Pantoprazole 40 MG VIAL IVP SCH ×2 (05:09→16:47)
[2021-01-10] MEDS: *HR* OxyCODONE/APAP 5/325 TABLET PO PRN (05:51)
[2021-01-10] MEDS: Menthol 1 EACH LOZENGE PO PRN (05:51)
[2021-01-10] MEDS: Multivit/Ca/Min/Fe/FA 1 TAB TABLET PO SCH (08:15)
[2021-01-10] MEDS: diazePAM 5 MG TABLET PO PRN ×2 (08:26→20:30)
[2021-01-10] MEDS: levoFLOXacin 750 MG/150 ML 750 MG/150 ML BAG IVPB SCH (16:48)
[2021-01-10] MEDS: Ertapenem 1,000 MG in 0.9 % Sodium Chloride Mini Bag 100 ML IVPB SCH (16:48)
[2021-01-10] MEDS: QUEtiapine Fumarate 100 MG TABLET PO SCH (20:30)
[2021-01-10] MEDS: *HR* OxyCODONE/APAP 7.5/325 TABLET PO PRN (20:30)
[2021-01-10] MEDS: Benzonatate 100 MG CAPSULE PO PRN (20:38)
[2021-01-11] MEDS: Ipratropium 1 PUFF INHALER IH SCH ×4 (04:02→21:38)
[2021-01-11] MEDS: Pantoprazole 40 MG VIAL IVP SCH ×2 (05:03→16:35)
[2021-01-11] MEDS: Multivit/Ca/Min/Fe/FA 1 TAB TABLET PO SCH (08:45)
[2021-01-11] MEDS: diazePAM 5 MG TABLET PO PRN ×2 (08:55→20:16)
[2021-01-11] MEDS: *HR* OxyCODONE/APAP 7.5/325 TABLET PO PRN ×2 (09:02→20:16)
[2021-01-11 16:05] LABS: Hematocrit 25.6 % (35.3-44.9); Hemoglobin 8.1 g/dL (11.5-15.4); Mean Corpuscular HGB Conc 31.6 g/dL (31.6-35.5)
[2021-01-11 16:06] LABS: Basophils % 0.3 %; Eosinophils % 0.6 %; Immature Granulocytes % 0.9 % (0-4); Immature Platelets 10.6 % (1.1-6.1); Lymphocytes # 0.7 K/mcL (0.6-4.6); Lymphocytes % 21.4 %; Mean Corpuscular Hemoglobin 26.8 pg (28.0-33.3); Mean Corpuscular Volume 84.8 fL (83.0-100.0); Monocytes # 0.3 K/mcL (0.0-1.3); Monocytes % 7.4 %; Red Blood Count 3.02 M/mcL (3.82-4.97); Red Cell Distribution Width 17.8 % (11.5-14.5); Segmented Neutrophils % 69.4 %; White Blood Count 3.4 K/mcL (4.3-11.1)
[2021-01-11 16:11] LABS: Neutrophils # 2.4 K/mcL (1.6-8.9)
[2021-01-11 16:15] LABS: Platelet Count 24 K/mcL (140-400)
[2021-01-11 16:30] LABS: BUN/Creatinine Ratio 10 (6-26); Blood Urea Nitrogen 9 mg/dL (6-20); Calcium 7.7 mg/dL (8.6-10.3); Carbon Dioxide 16 mEq/L (23-29); Chloride 113 mEq/L (98-107); Glucose 86 mg/dL (70-105); Osmolality,Calculated 276 (280-300); Potassium 3.5 mEq/L (3.5-5.1); Sodium 134 mEq/L (136-145); eGFR For African Americans > 60 (> 60); eGFR For Non-African Americans > 60 (> 60)
[2021-01-11] MEDS: Ertapenem 1,000 MG in 0.9 % Sodium Chloride Mini Bag 100 ML IVPB SCH (16:36)
[2021-01-11] MEDS: levoFLOXacin 750 MG/150 ML 750 MG/150 ML BAG IVPB SCH (16:50)
[2021-01-11] MEDS: QUEtiapine Fumarate 100 MG TABLET PO SCH (20:16)
[2021-01-11] MEDS: Benzonatate 100 MG CAPSULE PO PRN (20:16)
[2021-01-11] MEDS: lamoTRIgine 25 MG TABLET PO SCH (21:39)
[2021-01-12] MEDS: Menthol 1 EACH LOZENGE PO PRN (02:14)
[2021-01-12 02:40] LABS: Basophils % 0.3 %; Hemoglobin 7.8 g/dL (11.5-15.4)
[2021-01-12 02:42] LABS: Eosinophils % 0.9 %; Hematocrit 24.4 % (35.3-44.9); Immature Granulocytes % 0.6 % (0-4); Immature Platelets 8.8 % (1.1-6.1); Lymphocytes # 0.8 K/mcL (0.6-4.6); Lymphocytes % 23.7 %; Mean Corpuscular Hemoglobin 27.3 pg (28.0-33.3); Mean Corpuscular Volume 85.3 fL (83.0-100.0); Monocytes # 0.2 K/mcL (0.0-1.3); Monocytes % 6.9 %; Red Blood Count 2.86 M/mcL (3.82-4.97); Red Cell Distribution Width 18.1 % (11.5-14.5); Segmented Neutrophils % 67.6 %; White Blood Count 3.2 K/mcL (4.3-11.1)
[2021-01-12 02:44] LABS: Neutrophils # 2.2 K/mcL (1.6-8.9)
[2021-01-12 02:46] LABS: Platelet Count 23 K/mcL (140-400)
[2021-01-12 02:57] LABS: BUN/Creatinine Ratio 11 (6-26); Blood Urea Nitrogen 10 mg/dL (6-20); Calcium 7.5 mg/dL (8.6-10.3); Carbon Dioxide 15 mEq/L (23-29); Chloride 111 mEq/L (98-107); Glucose 95 mg/dL (70-105); Osmolality,Calculated 275 (280-300); Potassium 3.4 mEq/L (3.5-5.1); Sodium 133 mEq/L (136-145); eGFR For African Americans > 60 (> 60); eGFR For Non-African Americans > 60 (> 60)
[2021-01-12] MEDS: Ipratropium 1 PUFF INHALER IH SCH ×4 (04:02→21:44)
[2021-01-12] MEDS: Pantoprazole 40 MG VIAL IVP SCH (05:47)
[2021-01-12] MEDS ORDERED: Aspirin 81 MG TAB.CHEW PO SCH (09:00)
[2021-01-12] MEDS: lamoTRIgine 25 MG TABLET PO SCH (09:50)
[2021-01-12] MEDS: Ertapenem 1,000 MG in 0.9 % Sodium Chloride Mini Bag 100 ML IVPB SCH (09:51)
[2021-01-12] MEDS: Multivit/Ca/Min/Fe/FA 1 TAB TABLET PO SCH (09:51)
[2021-01-12] MEDS: Benzonatate 100 MG CAPSULE PO PRN ×2 (10:08→20:47)
[2021-01-12] MEDS: *HR* OxyCODONE/APAP 7.5/325 TABLET PO PRN ×2 (10:16→20:47)
[2021-01-12] MEDS: diazePAM 5 MG TABLET PO PRN ×2 (10:16→20:47)
[2021-01-12] MEDS: levoFLOXacin 750 MG/150 ML 750 MG/150 ML BAG IVPB SCH (17:46)
[2021-01-12] MEDS: QUEtiapine Fumarate 100 MG TABLET PO SCH (20:47)
[2021-01-13] MEDS: Ipratropium 1 PUFF INHALER IH SCH ×4 (03:45→20:32)
[2021-01-13] MEDS: Multivit/Ca/Min/Fe/FA 1 TAB TABLET PO SCH (09:40)
[2021-01-13] MEDS: Ertapenem 1,000 MG in 0.9 % Sodium Chloride Mini Bag 100 ML IVPB SCH (09:43)
[2021-01-13] MEDS: *HR* OxyCODONE/APAP 7.5/325 TABLET PO PRN ×2 (09:46→21:09)
[2021-01-13] MEDS: diazePAM 5 MG TABLET PO PRN ×2 (09:46→21:08)
[2021-01-13 10:36] LABS: Basophils % 0.3 %
[2021-01-13 10:38] LABS: Eosinophils % 0.9 %; Hematocrit 24.2 % (35.3-44.9); Hemoglobin 7.7 g/dL (11.5-15.4); Immature Granulocytes % 1.9 % (0-4); Immature Platelets 10.3 % (1.1-6.1); Lymphocytes # 0.7 K/mcL (0.6-4.6); Lymphocytes % 23.1 %; Mean Corpuscular HGB Conc 31.8 g/dL (31.6-35.5); Mean Corpuscular Hemoglobin 27.5 pg (28.0-33.3); Mean Corpuscular Volume 86.4 fL (83.0-100.0); Monocytes # 0.2 K/mcL (0.0-1.3); Monocytes % 5.9 %; Neutrophils # 2.2 K/mcL (1.6-8.9); Red Cell Distribution Width 18.2 % (11.5-14.5); Segmented Neutrophils % 67.9 %; White Blood Count 3.2 K/mcL (4.3-11.1)
[2021-01-13 10:41] LABS: BUN/Creatinine Ratio 11 (6-26); Blood Urea Nitrogen 9 mg/dL (6-20); Calcium 7.6 mg/dL (8.6-10.3); Carbon Dioxide 16 mEq/L (23-29); Chloride 113 mEq/L (98-107); Glucose 98 mg/dL (70-105); Osmolality,Calculated 279 (280-300); Potassium 3.4 mEq/L (3.5-5.1); Sodium 135 mEq/L (136-145); eGFR For African Americans > 60 (> 60); eGFR For Non-African Americans > 60 (> 60)
[2021-01-13 11:15] LABS: Platelet Count 24 K/mcL (140-400)
[2021-01-13] MEDS ORDERED: Potassium Chloride Elixir 20 MEQ/15 ML UDC PO ONE (12:52)
[2021-01-13] MEDS: levoFLOXacin 750 MG/150 ML 750 MG/150 ML BAG IVPB SCH (17:18)
[2021-01-13] MEDS: Benzonatate 100 MG CAPSULE PO PRN (21:08)
[2021-01-13] MEDS: QUEtiapine Fumarate 100 MG TABLET PO SCH (21:08)
[2021-01-14] MEDS: Ipratropium 1 PUFF INHALER IH SCH ×5 (04:49→22:33)
[2021-01-14 05:31] LABS: BUN/Creatinine Ratio 11 (6-26); Blood Urea Nitrogen 9 mg/dL (6-20); Calcium 7.9 mg/dL (8.6-10.3); Carbon Dioxide 16 mEq/L (23-29); Chloride 112 mEq/L (98-107); Glucose 107 mg/dL (70-105); Osmolality,Calculated 277 (280-300); Potassium 3.8 mEq/L (3.5-5.1); Sodium 134 mEq/L (136-145); eGFR For African Americans > 60 (> 60); eGFR For Non-African Americans > 60 (> 60)
[2021-01-14 05:32] LABS: Basophils % 0.3 %; Hemoglobin 7.8 g/dL (11.5-15.4); Segmented Neutrophils % 69.2 %
[2021-01-14 05:34] LABS: Eosinophils % 1.1 %; Hematocrit 24.3 % (35.3-44.9); Immature Granulocytes % 1.1 % (0-4); Immature Platelets 11.1 % (1.1-6.1); Lymphocytes # 0.8 K/mcL (0.6-4.6); Lymphocytes % 21.4 %; Mean Corpuscular HGB Conc 32.1 g/dL (31.6-35.5); Mean Corpuscular Volume 87.1 fL (83.0-100.0); Monocytes # 0.3 K/mcL (0.0-1.3); Monocytes % 6.9 %; Neutrophils # 2.5 K/mcL (1.6-8.9); Red Blood Count 2.79 M/mcL (3.82-4.97); Red Cell Distribution Width 18.8 % (11.5-14.5); White Blood Count 3.6 K/mcL (4.3-11.1)
[2021-01-14 07:06] LABS: Platelet Count 25 K/mcL (140-400)
[2021-01-14] MEDS: *HR* OxyCODONE/APAP 7.5/325 TABLET PO PRN ×2 (08:42→16:42)
[2021-01-14] MEDS: Multivit/Ca/Min/Fe/FA 1 TAB TABLET PO SCH (08:43)
[2021-01-14] MEDS: diazePAM 5 MG TABLET PO PRN ×2 (08:43→21:10)
[2021-01-14] MEDS: Ertapenem 1,000 MG in 0.9 % Sodium Chloride Mini Bag 100 ML IVPB SCH (08:43)
[2021-01-14] MEDS: levoFLOXacin 750 MG/150 ML 750 MG/150 ML BAG IVPB SCH (16:32)
[2021-01-14] MEDS: Sennosides/Docusate Sodium TABLET PO SCH (18:14)
[2021-01-14] MEDS: QUEtiapine Fumarate 100 MG TABLET PO SCH (21:10)
[2021-01-14] MEDS: Benzonatate 100 MG CAPSULE PO PRN (21:10)
[2021-01-15] MEDS: Ipratropium 1 PUFF INHALER IH SCH ×5 (04:46→22:13)
[2021-01-15 05:34] LABS: BUN/Creatinine Ratio 10 (6-26); Blood Urea Nitrogen 8 mg/dL (6-20); Calcium 7.8 mg/dL (8.6-10.3); Carbon Dioxide 15 mEq/L (23-29); Chloride 110 mEq/L (98-107); Glucose 90 mg/dL (70-105); Osmolality,Calculated 274 (280-300); Potassium 3.8 mEq/L (3.5-5.1); Sodium 133 mEq/L (136-145); eGFR For African Americans > 60 (> 60); eGFR For Non-African Americans > 60 (> 60)
[2021-01-15 05:59] LABS: Hemoglobin 8.1 g/dL (11.5-15.4)
[2021-01-15 06:01] LABS: Basophils % 0.2 %; Eosinophils % 0.8 %; Hematocrit 25.1 % (35.3-44.9); Immature Granulocytes % 1.2 % (0-4); Immature Platelets 9.3 % (1.1-6.1); Lymphocytes # 0.8 K/mcL (0.6-4.6); Mean Corpuscular HGB Conc 32.3 g/dL (31.6-35.5); Mean Corpuscular Volume 86.9 fL (83.0-100.0); Monocytes # 0.4 K/mcL (0.0-1.3); Monocytes % 7.9 %; Neutrophils # 3.8 K/mcL (1.6-8.9); Red Blood Count 2.89 M/mcL (3.82-4.97); Red Cell Distribution Width 18.9 % (11.5-14.5); Segmented Neutrophils % 73.9 %; White Blood Count 5.2 K/mcL (4.3-11.1)
[2021-01-15 06:28] LABS: Platelet Count 29 K/mcL (140-400)
[2021-01-15] MEDS: Ertapenem 1,000 MG in 0.9 % Sodium Chloride Mini Bag 100 ML IVPB SCH (09:18)
[2021-01-15] MEDS: *HR* OxyCODONE/APAP 7.5/325 TABLET PO PRN ×2 (09:18→17:30)
[2021-01-15] MEDS: Sennosides/Docusate Sodium TABLET PO SCH (09:18)
[2021-01-15] MEDS: Multivit/Ca/Min/Fe/FA 1 TAB TABLET PO SCH (09:18)
[2021-01-15] MEDS: diazePAM 5 MG TABLET PO PRN (10:25)
[2021-01-15] MEDS: levoFLOXacin 750 MG/150 ML 750 MG/150 ML BAG IVPB SCH (22:02)
[2021-01-15] MEDS: QUEtiapine Fumarate 100 MG TABLET PO SCH (22:03)
[2021-01-16] MEDS: *HR* OxyCODONE/APAP 7.5/325 TABLET PO PRN ×3 (01:43→20:16)
[2021-01-16 01:50] LABS: Basophils % 0.3 %; Hemoglobin 8.3 g/dL (11.5-15.4)
[2021-01-16 01:51] LABS: Eosinophils % 0.4 %; Immature Granulocytes % 0.6 % (0-4); Immature Platelets 8.4 % (1.1-6.1); Lymphocytes # 0.9 K/mcL (0.6-4.6); Lymphocytes % 13.2 %; Mean Corpuscular HGB Conc 31.9 g/dL (31.6-35.5); Mean Corpuscular Hemoglobin 27.5 pg (28.0-33.3); Mean Corpuscular Volume 86.1 fL (83.0-100.0); Monocytes # 0.5 K/mcL (0.0-1.3); Monocytes % 7.7 %; Neutrophils # 5.2 K/mcL (1.6-8.9); Red Blood Count 3.02 M/mcL (3.82-4.97); Red Cell Distribution Width 18.9 % (11.5-14.5); Segmented Neutrophils % 77.8 %; White Blood Count 6.7 K/mcL (4.3-11.1)
[2021-01-16 01:58] LABS: BUN/Creatinine Ratio 13 (6-26); Blood Urea Nitrogen 10 mg/dL (6-20); Calcium 7.9 mg/dL (8.6-10.3); Carbon Dioxide 16 mEq/L (23-29); Chloride 109 mEq/L (98-107); Glucose 88 mg/dL (70-105); Osmolality,Calculated 274 (280-300); Potassium 3.6 mEq/L (3.5-5.1); Sodium 133 mEq/L (136-145); eGFR For African Americans > 60 (> 60); eGFR For Non-African Americans > 60 (> 60)
[2021-01-16 02:01] LABS: Platelet Count 28 K/mcL (140-400)
[2021-01-16] MEDS: Ipratropium 1 PUFF INHALER IH SCH ×4 (04:29→22:50)
[2021-01-16] MEDS: Sennosides/Docusate Sodium TABLET PO SCH (09:56)
[2021-01-16] MEDS: Multivit/Ca/Min/Fe/FA 1 TAB TABLET PO SCH (09:56)
[2021-01-16] MEDS: Ertapenem 1,000 MG in 0.9 % Sodium Chloride Mini Bag 100 ML IVPB SCH (09:56)
[2021-01-16] MEDS ORDERED: 0.9 % Sodium Chloride 500 ML IVC ONE (11:45)
[2021-01-16] MEDS: levoFLOXacin 750 MG/150 ML 750 MG/150 ML BAG IVPB SCH (17:59)
[2021-01-16] MEDS: diazePAM 5 MG TABLET PO PRN (17:59)
[2021-01-16] MEDS: QUEtiapine Fumarate 100 MG TABLET PO SCH (20:16)
[2021-01-17] MEDS: Ipratropium 1 PUFF INHALER IH SCH ×2 (04:07→11:18)
[2021-01-17 04:36] LABS: BUN/Creatinine Ratio 12 (6-26); Blood Urea Nitrogen 13 mg/dL (6-20); Calcium 7.9 mg/dL (8.6-10.3); Carbon Dioxide 17 mEq/L (23-29); Chloride 112 mEq/L (98-107); Glucose 106 mg/dL (70-105); Osmolality,Calculated 283 (280-300); Potassium 3.4 mEq/L (3.5-5.1); Sodium 136 mEq/L (136-145); eGFR For African Americans > 60 (> 60); eGFR For Non-African Americans 59 (> 60)
[2021-01-17 05:54] LABS: Basophils % 0.3 %; Eosinophils % 0.9 %; Hematocrit 16.6 % (35.3-44.9); Immature Granulocytes % 0.9 % (0-4); Lymphocytes # 0.6 K/mcL (0.6-4.6); Lymphocytes % 18.1 %; Mean Corpuscular HGB Conc 30.1 g/dL (31.6-35.5); Mean Corpuscular Hemoglobin 27.3 pg (28.0-33.3); Mean Corpuscular Volume 90.7 fL (83.0-100.0); Monocytes # 0.3 K/mcL (0.0-1.3); Monocytes % 8.6 %; Neutrophils # 2.4 K/mcL (1.6-8.9); Nucleated Red Blood Cells 0.9 /100 WBC (0); Red Blood Count 1.83 M/mcL (3.82-4.97); Red Cell Distribution Width 19.3 % (11.5-14.5); Segmented Neutrophils % 71.2 %; White Blood Count 3.4 K/mcL (4.3-11.1)
[2021-01-17 06:04] LABS: Platelet Count 17 K/mcL (140-400)
[2021-01-17 06:49] VITALS: PULSE 89
[2021-01-17] MEDS: Multivit/Ca/Min/Fe/FA 1 TAB TABLET PO SCH (08:25)
[2021-01-17] MEDS: *HR* OxyCODONE/APAP 7.5/325 TABLET PO PRN (08:25)
[2021-01-17] MEDS: Sennosides/Docusate Sodium TABLET PO SCH (08:27)
[2021-01-17 08:55] LABS: Mean Corpuscular Volume 86.4 fL (83.0-100.0)
[2021-01-17 08:57] LABS: Basophils % 0.4 %; Eosinophils # 0.1 K/mcL (0.0-0.6); Eosinophils % 1.2 %; Hematocrit 23.5 % (35.3-44.9); Hemoglobin 7.4 g/dL (11.5-15.4); Immature Platelets 7.6 % (1.1-6.1); Lymphocytes # 0.8 K/mcL (0.6-4.6); Lymphocytes % 16.1 %; Mean Corpuscular HGB Conc 31.5 g/dL (31.6-35.5); Mean Corpuscular Hemoglobin 27.2 pg (28.0-33.3); Monocytes # 0.4 K/mcL (0.0-1.3); Neutrophils # 3.8 K/mcL (1.6-8.9); Red Blood Count 2.72 M/mcL (3.82-4.97); Red Cell Distribution Width 19.2 % (11.5-14.5); Segmented Neutrophils % 74.3 %; White Blood Count 5.1 K/mcL (4.3-11.1)
[2021-01-17 09:03] LABS: Platelet Count 27 K/mcL (140-400)
[2021-01-17 09:24] LABS: Platelet Estimate Marked Decrease (Normal)
[2021-01-17] MEDS: Ertapenem 1,000 MG in 0.9 % Sodium Chloride Mini Bag 100 ML IVPB SCH (10:38)
[2021-01-17 11:13] VITALS: BP 95/64; TEMP 97.7; O2SAT 94
[2021-01-17 13:18] LABS: Hemoglobin 8.1 g/dL (11.5-15.4); Immature Granulocytes % 0.7 % (0-4)
[2021-01-17 13:20] LABS: Basophils % 0.1 %; Eosinophils % 0.4 %; Hematocrit 25.8 % (35.3-44.9); Immature Platelets 7.7 % (1.1-6.1); Lymphocytes # 0.7 K/mcL (0.6-4.6); Lymphocytes % 9.5 %; Mean Corpuscular HGB Conc 31.4 g/dL (31.6-35.5); Mean Corpuscular Hemoglobin 27.2 pg (28.0-33.3); Mean Corpuscular Volume 86.6 fL (83.0-100.0); Monocytes # 0.5 K/mcL (0.0-1.3); Monocytes % 6.4 %; Neutrophils # 6.2 K/mcL (1.6-8.9); Red Blood Count 2.98 M/mcL (3.82-4.97); Red Cell Distribution Width 19.5 % (11.5-14.5); Segmented Neutrophils % 82.9 %; White Blood Count 7.5 K/mcL (4.3-11.1)
[2021-01-17 13:25] LABS: Platelet Count 25 K/mcL (140-400)
[2021-01-17] MEDS ORDERED: diazePAM 5 MG TABLET PO ONE (14:39)
[2021-01-17 14:46] LABS: Platelet Estimate Marked Decrease (Normal)
== END 2021-01-17 16:18 | DRG 206 ==
LOC: SUATTDRO 23:36 → ICNU 23:36 → 2NENU 12-27 22:37 → 3ANU 01-15 18:48
PROVIDERS: ADMIT Internal Medicine; ATTEND Family Medicine

== ENCOUNTER 2021-01-24 23:12 | Inpatient (IN) ==
[2021-01-24] MEDS ORDERED: 0.9 % Sodium Chloride 1,000 ML IVC ONE (23:26)
[2021-01-25 00:21] LABS: Basophils % 0.2 %; Eosinophils % 0.2 %; Hemoglobin 8.4 g/dL (11.5-15.4); Immature Granulocytes % 0.9 % (0-4); Immature Platelets 12.7 % (1.1-6.1); Lymphocytes # 0.9 K/mcL (0.6-4.6); Lymphocytes % 7.3 %; Mean Corpuscular HGB Conc 32.3 g/dL (31.6-35.5); Mean Corpuscular Hemoglobin 28.6 pg (28.0-33.3); Mean Corpuscular Volume 88.4 fL (83.0-100.0); Monocytes # 1.1 K/mcL (0.0-1.3); Monocytes % 8.9 %; Neutrophils # 10.3 K/mcL (1.6-8.9); Red Blood Count 2.94 M/mcL (3.82-4.97); Red Cell Distribution Width 19.8 % (11.5-14.5); Segmented Neutrophils % 82.5 %; White Blood Count 12.5 K/mcL (4.3-11.1)
[2021-01-25 00:26] LABS: Platelet Count 30 K/mcL (140-400)
[2021-01-25 00:29] LABS: Bacteria,Urine Few per hpf (None-Few); Bilirubin,Urine Negative (Negative); Blood,Urine Negative (Negative); Clarity,Urine Turbid (Clear); Color,Urine Yellow (Yellow); Glucose,Urine (UA) Normal (Normal); Hyaline Casts,Urine Few per lpf (None Seen); Ketones,Urine Negative (Negative); Leukocyte Esterase,Urine Large (Negative); Mucus,Urine Few per lpf (None-Few); Nitrite,Urine Negative (Negative); Protein,Urine Trace mg/dL (Neg-Trace); RBC,Urine 0-3 per hpf (0-3); Specific Gravity,Urine 1.018 (1.010-1.025); Squamous Epithelial Cell,Urine Few per hpf (None-Few); WBC,Urine 15-30 per hpf (0-3)
[2021-01-25 00:33] LABS: Alanine Aminotransferase 18 Units/L (7-52); Albumin 2.9 g/dL (3.5-5.7); Albumin/Globulin Ratio 0.9 (1.1-2.2); Alkaline Phosphatase 317 Units/L (34-104); Aspartate Amino Transferase 59 Units/L (13-39); BUN/Creatinine Ratio 22 (6-26); Bilirubin,Direct 1.1 mg/dL (0.0-0.2); Bilirubin,Indirect 1.4 mg/dL (0.0-1.0); Bilirubin,Total 2.5 mg/dL (0.3-1.0); Blood Urea Nitrogen 20 mg/dL (6-20); Calcium 8.2 mg/dL (8.6-10.3); Carbon Dioxide 16 mEq/L (23-29); Chloride 105 mEq/L (98-107); Globulin 3.1 g/dL (2.4-3.5); Glucose 93 mg/dL (70-105); Magnesium 1.5 mg/dL (1.6-2.6); Osmolality,Calculated 272 (280-300); Potassium 4.2 mEq/L (3.5-5.1); Sodium 130 mEq/L (136-145); Troponin I < 0.03 ng/mL (< 0.04); eGFR For African Americans > 60 (> 60); eGFR For Non-African Americans > 60 (> 60)
[2021-01-25] MEDS ORDERED: 0.9 % Sodium Chloride 1,000 ML ONE (01:43)
[2021-01-25] MEDS ORDERED: 0.9 % Sodium Chloride 1,000 ML IV ONE (01:48)
[2021-01-25] MEDS ORDERED: Ondansetron ODT 4 MG TAB.RAPDIS SL PRN (03:49)
[2021-01-25] MEDS ORDERED: Melatonin 3 MG TABLET PO PRN (03:49)
[2021-01-25] MEDS ORDERED: Naloxone 0.4 MG/ML INJ IVP PRN (03:49)
[2021-01-25] MEDS ORDERED: Isovue-370 500 ML BOTTLE IVP ONE (03:54)
[2021-01-25] MEDS ORDERED: 0.9 % Sodium Chloride 500 ML IVC ONE (04:29)
[2021-01-25 05:05] LABS: Hemoglobin 6.7 g/dL (11.5-15.4); Immature Platelets 8.1 % (1.1-6.1); Mean Corpuscular HGB Conc 31.9 g/dL (31.6-35.5); Mean Corpuscular Hemoglobin 28.3 pg (28.0-33.3); Mean Corpuscular Volume 88.6 fL (83.0-100.0); Red Blood Count 2.37 M/mcL (3.82-4.97); White Blood Count 7.9 K/mcL (4.3-11.1)
[2021-01-25 05:10] LABS: INR 1.7; Prothrombin Time 18.5 Seconds (9.4-12.1)
[2021-01-25 05:13] LABS: Platelet Count 30 K/mcL (140-400)
[2021-01-25 05:18] LABS: Albumin 2.4 g/dL (3.5-5.7); Bilirubin,Direct 1.4 mg/dL (0.0-0.2); Bilirubin,Total 2.4 mg/dL (0.3-1.0); Globulin 2.5 g/dL (2.4-3.5); Total Protein 4.9 g/dL (6.4-8.9)
[2021-01-25 05:19] LABS: BUN/Creatinine Ratio 22 (6-26); Blood Urea Nitrogen 18 mg/dL (6-20); Calcium 7.5 mg/dL (8.6-10.3); Carbon Dioxide 18 mEq/L (23-29); Chloride 112 mEq/L (98-107); Glucose 114 mg/dL (70-105); Osmolality,Calculated 287 (280-300); Phosphorous 4.2 mg/dL (2.7-4.5); Sodium 137 mEq/L (136-145); eGFR For African Americans > 60 (> 60); eGFR For Non-African Americans > 60 (> 60)
[2021-01-25] MEDS ORDERED: 0.9 % Sodium Chloride 250 ML IVC SCH (05:30)
[2021-01-25] MEDS: Norepinephrine 4 MG/254 ML IV.SOLN IVC SCH ×2 (06:35→09:48)
[2021-01-25] MEDS: Calcium Gluconate 1gm/50mL 1 GM/50 ML BAG IVPB SCH ×2 (06:40→07:35)
[2021-01-25] MEDS: levoFLOXacin 750 MG/150 ML 750 MG/150 ML BAG IVPB SCH (07:44)
[2021-01-25] MEDS: Albumin Human 5% 12.5 GM/250 ML IV.SOLN IVC SCH ×2 (08:57→11:30)
[2021-01-25] MEDS: Ertapenem 1,000 MG in 0.9 % Sodium Chloride Mini Bag 100 ML IVPB SCH (09:40)
[2021-01-25] MEDS: Micafungin 100 MG in 0.9 % Sodium Chloride Mini Bag 100 ML IVPB SCH (13:19)
[2021-01-25] MEDS ORDERED: 0.9 % Sodium Chloride 250 ML ONE (18:04)
[2021-01-25 19:02] LABS: Hematocrit 21.9 % (35.3-44.9); Hemoglobin 6.9 g/dL (11.5-15.4); Mean Corpuscular HGB Conc 31.5 g/dL (31.6-35.5); Mean Corpuscular Hemoglobin 27.8 pg (28.0-33.3); Mean Corpuscular Volume 88.3 fL (83.0-100.0); Red Blood Count 2.48 M/mcL (3.82-4.97); Red Cell Distribution Width 20.1 % (11.5-14.5); White Blood Count 4.9 K/mcL (4.3-11.1)
[2021-01-25 19:04] LABS: Platelet Count 43 K/mcL (140-400)
[2021-01-25] MEDS: QUEtiapine Fumarate 100 MG TABLET PO SCH (21:23)
[2021-01-25] MEDS: diazePAM 5 MG TABLET PO PRN (22:30)
[2021-01-25] MEDS: *HR* OxyCODONE/APAP 7.5/325 TABLET PO PRN (22:30)
[2021-01-26 03:20] LABS: Red Cell Distribution Width 19.7 % (11.5-14.5)
[2021-01-26 03:22] LABS: Hematocrit 25.6 % (35.3-44.9); Immature Platelets 9.9 % (1.1-6.1); Mean Corpuscular HGB Conc 31.3 g/dL (31.6-35.5); Mean Corpuscular Hemoglobin 27.8 pg (28.0-33.3); Mean Corpuscular Volume 88.9 fL (83.0-100.0); Red Blood Count 2.88 M/mcL (3.82-4.97); White Blood Count 5.7 K/mcL (4.3-11.1)
[2021-01-26 03:24] LABS: Platelet Count 33 K/mcL (140-400)
[2021-01-26] MEDS: levoFLOXacin 750 MG/150 ML 750 MG/150 ML BAG IVPB SCH (08:49)
[2021-01-26] MEDS: Ertapenem 1,000 MG in 0.9 % Sodium Chloride Mini Bag 100 ML IVPB SCH (08:50)
[2021-01-26] MEDS: diazePAM 5 MG TABLET PO PRN ×2 (12:46→21:16)
[2021-01-26] MEDS: *HR* OxyCODONE/APAP 7.5/325 TABLET PO PRN ×2 (12:46→21:16)
[2021-01-26] MEDS: Micafungin 100 MG in 0.9 % Sodium Chloride Mini Bag 100 ML IVPB SCH (12:46)
[2021-01-26] MEDS: Norepinephrine 4 MG/254 ML IV.SOLN IVC SCH (15:45)
[2021-01-26] MEDS ORDERED: 0.9 % Sodium Chloride 500 ML IVC SCH (16:45)
[2021-01-26] MEDS: QUEtiapine Fumarate 100 MG TABLET PO SCH (21:16)
[2021-01-27 06:28] LABS: BUN/Creatinine Ratio 24 (6-26); Blood Urea Nitrogen 15 mg/dL (6-20); Calcium 8.3 mg/dL (8.6-10.3); Carbon Dioxide 19 mEq/L (23-29); Chloride 112 mEq/L (98-107); Glucose 104 mg/dL (70-105); Magnesium 1.6 mg/dL (1.6-2.6); Osmolality,Calculated 287 (280-300); Phosphorous 4.1 mg/dL (2.7-4.5); Potassium 4.2 mEq/L (3.5-5.1); Sodium 138 mEq/L (136-145); eGFR For African Americans > 60 (> 60); eGFR For Non-African Americans > 60 (> 60)
[2021-01-27] MEDS: Ertapenem 1,000 MG in 0.9 % Sodium Chloride Mini Bag 100 ML IVPB SCH (08:18)
[2021-01-27] MEDS: *HR* OxyCODONE/APAP 7.5/325 TABLET PO PRN ×2 (08:18→20:13)
[2021-01-27] MEDS: levoFLOXacin 750 MG/150 ML 750 MG/150 ML BAG IVPB SCH (08:19)
[2021-01-27 10:43] LABS: Basophils % 0.4 %; Eosinophils # 0.1 K/mcL (0.0-0.6); Eosinophils % 1.5 %; Hematocrit 26.1 % (35.3-44.9); Hemoglobin 7.8 g/dL (11.5-15.4); Immature Granulocytes % 0.6 % (0-4); Immature Platelets 13.3 % (1.1-6.1); Immature Reticulocyte % 20.9 % (11.0-38.0); Lymphocytes % 19.3 %; Mean Corpuscular HGB Conc 29.9 g/dL (31.6-35.5); Mean Corpuscular Hemoglobin 27.2 pg (28.0-33.3); Mean Corpuscular Volume 90.9 fL (83.0-100.0); Monocytes # 0.4 K/mcL (0.0-1.3); Monocytes % 7.3 %; Neutrophils # 3.7 K/mcL (1.6-8.9); Red Blood Count 2.87 M/mcL (3.82-4.97); Red Cell Distribution Width 19.9 % (11.5-14.5); Reticulocyte % 3.6 % (1.6-2.8); Segmented Neutrophils % 70.9 %; White Blood Count 5.2 K/mcL (4.3-11.1)
[2021-01-27 11:03] LABS: Platelet Count 34 K/mcL (140-400)
[2021-01-27] MEDS: diazePAM 5 MG TABLET PO PRN ×2 (11:33→20:12)
[2021-01-27] MEDS: Calcium Gluconate 1gm/50mL 1 GM/50 ML BAG IVPB SCH ×2 (13:14→14:08)
[2021-01-27] MEDS: Lactobacillus 1 EACH CAP.SPRINK PO SCH (20:12)
[2021-01-27] MEDS: QUEtiapine Fumarate 100 MG TABLET PO SCH (20:12)
[2021-01-27] MEDS: Magnesium Oxide 400 MG TABLET PO SCH (20:13)
[2021-01-28 05:55] LABS: Basophils % 0.2 %; Eosinophils % 1.3 %; Mean Corpuscular Volume 89.6 fL (83.0-100.0)
[2021-01-28 05:57] LABS: Eosinophils # 0.1 K/mcL (0.0-0.6); Hematocrit 25.8 % (35.3-44.9); Immature Granulocytes % 0.5 % (0-4); Immature Platelets 10.1 % (1.1-6.1); Lymphocytes # 1.1 K/mcL (0.6-4.6); Lymphocytes % 18.5 %; Mean Corpuscular Hemoglobin 27.8 pg (28.0-33.3); Monocytes # 0.4 K/mcL (0.0-1.3); Monocytes % 6.5 %; Neutrophils # 4.5 K/mcL (1.6-8.9); Red Blood Count 2.88 M/mcL (3.82-4.97); Red Cell Distribution Width 19.3 % (11.5-14.5); White Blood Count 6.1 K/mcL (4.3-11.1)
[2021-01-28 06:12] LABS: Alanine Aminotransferase 6 Units/L (7-52); Albumin 2.9 g/dL (3.5-5.7); Albumin/Globulin Ratio 1.1 (1.1-2.2); Alkaline Phosphatase 168 Units/L (34-104); Aspartate Amino Transferase 12 Units/L (13-39); BUN/Creatinine Ratio 21 (6-26); Bilirubin,Total 1.3 mg/dL (0.3-1.0); Blood Urea Nitrogen 14 mg/dL (6-20); Calcium 8.4 mg/dL (8.6-10.3); Carbon Dioxide 22 mEq/L (23-29); Chloride 108 mEq/L (98-107); Globulin 2.6 g/dL (2.4-3.5); Glucose 81 mg/dL (70-105); Magnesium 1.8 mg/dL (1.6-2.6); Osmolality,Calculated 284 (280-300); Phosphorous 4.6 mg/dL (2.7-4.5); Potassium 4.5 mEq/L (3.5-5.1); Sodium 137 mEq/L (136-145); Total Protein 5.5 g/dL (6.4-8.9); eGFR For African Americans > 60 (> 60); eGFR For Non-African Americans > 60 (> 60)
[2021-01-28 06:16] LABS: Platelet Count 39 K/mcL (140-400)
[2021-01-28] MEDS: Lactobacillus 1 EACH CAP.SPRINK PO SCH ×2 (08:43→20:24)
[2021-01-28] MEDS: Magnesium Oxide 400 MG TABLET PO SCH ×2 (08:43→20:25)
[2021-01-28] MEDS: *HR* OxyCODONE/APAP 7.5/325 TABLET PO PRN ×2 (08:43→20:24)
[2021-01-28] MEDS: Multivit/Ca/Min/Fe/FA 1 TAB TABLET PO SCH (08:43)
[2021-01-28] MEDS: Ertapenem 1,000 MG in 0.9 % Sodium Chloride Mini Bag 100 ML IVPB SCH (08:44)
[2021-01-28] MEDS: diazePAM 5 MG TABLET PO PRN ×2 (08:45→20:25)
[2021-01-28] MEDS: levoFLOXacin 750 MG/150 ML 750 MG/150 ML BAG IVPB SCH (09:03)
[2021-01-28] MEDS: QUEtiapine Fumarate 100 MG TABLET PO SCH (20:25)
[2021-01-29] MEDS ORDERED: Albumin 25% 25gram/100mL 25 GM/100 ML IV.SOLN IVPB ONE (03:45)
[2021-01-29 04:07] LABS: Basophils % 0.4 %; Eosinophils # 0.1 K/mcL (0.0-0.6); Eosinophils % 1.1 %; Hematocrit 25.4 % (35.3-44.9); Immature Granulocytes % 0.4 % (0-4); Immature Platelets 10.3 % (1.1-6.1); Lymphocytes # 1.2 K/mcL (0.6-4.6); Lymphocytes % 20.2 %; Mean Corpuscular HGB Conc 31.5 g/dL (31.6-35.5); Mean Corpuscular Hemoglobin 27.7 pg (28.0-33.3); Mean Corpuscular Volume 87.9 fL (83.0-100.0); Monocytes # 0.5 K/mcL (0.0-1.3); Monocytes % 8.6 %; Red Blood Count 2.89 M/mcL (3.82-4.97); Red Cell Distribution Width 19.4 % (11.5-14.5); Segmented Neutrophils % 69.3 %; White Blood Count 5.7 K/mcL (4.3-11.1)
[2021-01-29 04:09] LABS: Platelet Count 36 K/mcL (140-400)
[2021-01-29 04:23] LABS: Alanine Aminotransferase 9 Units/L (7-52); Albumin 2.8 g/dL (3.5-5.7); Alkaline Phosphatase 192 Units/L (34-104); Aspartate Amino Transferase 23 Units/L (13-39); BUN/Creatinine Ratio 22 (6-26); Bilirubin,Total 1.3 mg/dL (0.3-1.0); Blood Urea Nitrogen 14 mg/dL (6-20); Calcium 8.4 mg/dL (8.6-10.3); Carbon Dioxide 22 mEq/L (23-29); Chloride 107 mEq/L (98-107); Globulin 2.7 g/dL (2.4-3.5); Glucose 95 mg/dL (70-105); Magnesium 1.7 mg/dL (1.6-2.6); Osmolality,Calculated 284 (280-300); Phosphorous 4.5 mg/dL (2.7-4.5); Potassium 4.2 mEq/L (3.5-5.1); Sodium 137 mEq/L (136-145); Total Protein 5.5 g/dL (6.4-8.9); eGFR For African Americans > 60 (> 60); eGFR For Non-African Americans > 60 (> 60)
[2021-01-29 04:26] LABS: Iron 31 mcg/dL (50-170)
[2021-01-29 04:43] LABS: Ferritin 461 ng/mL (10-120)
[2021-01-29 04:49] LABS: Folate 8.4 ng/mL (3.0-16.0)
[2021-01-29] MEDS: Lactobacillus 1 EACH CAP.SPRINK PO SCH ×2 (09:33→20:44)
[2021-01-29] MEDS: Magnesium Oxide 400 MG TABLET PO SCH ×2 (09:33→20:45)
[2021-01-29] MEDS: Multivit/Ca/Min/Fe/FA 1 TAB TABLET PO SCH (09:33)
[2021-01-29] MEDS: *HR* OxyCODONE/APAP 7.5/325 TABLET PO PRN ×2 (09:34→20:46)
[2021-01-29] MEDS: levoFLOXacin 750 MG/150 ML 750 MG/150 ML BAG IVPB SCH (09:34)
[2021-01-29] MEDS: Ertapenem 1,000 MG in 0.9 % Sodium Chloride Mini Bag 100 ML IVPB SCH (09:34)
[2021-01-29] MEDS: diazePAM 5 MG TABLET PO PRN ×2 (13:11→22:00)
[2021-01-29] MEDS: QUEtiapine Fumarate 100 MG TABLET PO SCH (20:45)
[2021-01-30 03:33] LABS: Basophils % 0.3 %; Immature Granulocytes % 0.3 % (0-4)
[2021-01-30 03:35] LABS: Eosinophils # 0.1 K/mcL (0.0-0.6); Eosinophils % 1.3 %; Hematocrit 25.8 % (35.3-44.9); Hemoglobin 8.3 g/dL (11.5-15.4); Lymphocytes # 0.9 K/mcL (0.6-4.6); Lymphocytes % 14.2 %; Mean Corpuscular HGB Conc 32.2 g/dL (31.6-35.5); Mean Corpuscular Hemoglobin 28.5 pg (28.0-33.3); Mean Corpuscular Volume 88.7 fL (83.0-100.0); Monocytes # 0.6 K/mcL (0.0-1.3); Monocytes % 10.2 %; Neutrophils # 4.6 K/mcL (1.6-8.9); Platelet Count 39 K/mcL (140-400); Red Blood Count 2.91 M/mcL (3.82-4.97); Red Cell Distribution Width 19.2 % (11.5-14.5); Segmented Neutrophils % 73.7 %; White Blood Count 6.2 K/mcL (4.3-11.1)
[2021-01-30 03:47] LABS: Alanine Aminotransferase 11 Units/L (7-52); Albumin 3.1 g/dL (3.5-5.7); Albumin/Globulin Ratio 1.2 (1.1-2.2); Alkaline Phosphatase 170 Units/L (34-104); Aspartate Amino Transferase 26 Units/L (13-39); BUN/Creatinine Ratio 21 (6-26); Bilirubin,Total 1.4 mg/dL (0.3-1.0); Blood Urea Nitrogen 14 mg/dL (6-20); Calcium 8.5 mg/dL (8.6-10.3); Carbon Dioxide 23 mEq/L (23-29); Chloride 106 mEq/L (98-107); Globulin 2.5 g/dL (2.4-3.5); Glucose 91 mg/dL (70-105); Magnesium 1.7 mg/dL (1.6-2.6); Osmolality,Calculated 282 (280-300); Phosphorous 4.2 mg/dL (2.7-4.5); Potassium 4.5 mEq/L (3.5-5.1); Sodium 136 mEq/L (136-145); Total Protein 5.6 g/dL (6.4-8.9); eGFR For African Americans > 60 (> 60); eGFR For Non-African Americans > 60 (> 60)
[2021-01-30] MEDS: *HR* OxyCODONE/APAP 7.5/325 TABLET PO PRN ×2 (09:29→20:06)
[2021-01-30] MEDS: Magnesium Oxide 400 MG TABLET PO SCH ×2 (09:29→20:07)
[2021-01-30] MEDS: Multivit/Ca/Min/Fe/FA 1 TAB TABLET PO SCH (09:29)
[2021-01-30] MEDS: Lactobacillus 1 EACH CAP.SPRINK PO SCH ×2 (09:29→20:07)
[2021-01-30] MEDS: Ertapenem 1,000 MG in 0.9 % Sodium Chloride Mini Bag 100 ML IVPB SCH (09:46)
[2021-01-30] MEDS: levoFLOXacin 750 MG/150 ML 750 MG/150 ML BAG IVPB SCH (09:47)
[2021-01-30] MEDS: diazePAM 5 MG TABLET PO PRN ×2 (13:11→20:07)
[2021-01-30] MEDS: QUEtiapine Fumarate 100 MG TABLET PO SCH (20:07)
[2021-01-31 06:37] LABS: Basophils % 0.3 %; Eosinophils % 0.7 %; Hematocrit 26.6 % (35.3-44.9); Hemoglobin 8.4 g/dL (11.5-15.4); Immature Granulocytes % 0.3 % (0-4); Immature Platelets 11.6 % (1.1-6.1); Lymphocytes # 0.8 K/mcL (0.6-4.6); Mean Corpuscular HGB Conc 31.6 g/dL (31.6-35.5); Mean Corpuscular Hemoglobin 27.9 pg (28.0-33.3); Mean Corpuscular Volume 88.4 fL (83.0-100.0); Monocytes # 0.6 K/mcL (0.0-1.3); Monocytes % 9.8 %; Neutrophils # 4.5 K/mcL (1.6-8.9); Red Blood Count 3.01 M/mcL (3.82-4.97); Segmented Neutrophils % 74.9 %
[2021-01-31 06:40] LABS: Platelet Count 37 K/mcL (140-400)
[2021-01-31 06:45] LABS: BUN/Creatinine Ratio 19 (6-26); Blood Urea Nitrogen 17 mg/dL (6-20); Calcium 8.6 mg/dL (8.6-10.3); Carbon Dioxide 24 mEq/L (23-29); Chloride 105 mEq/L (98-107); Glucose 103 mg/dL (70-105); Osmolality,Calculated 282 (280-300); Potassium 4.6 mEq/L (3.5-5.1); Sodium 135 mEq/L (136-145); eGFR For African Americans > 60 (> 60); eGFR For Non-African Americans > 60 (> 60)
[2021-01-31] MEDS: Lactobacillus 1 EACH CAP.SPRINK PO SCH ×2 (07:21→20:46)
[2021-01-31] MEDS: Multivit/Ca/Min/Fe/FA 1 TAB TABLET PO SCH (07:56)
[2021-01-31] MEDS: Magnesium Oxide 400 MG TABLET PO SCH ×2 (07:56→20:46)
[2021-01-31] MEDS: Ertapenem 1,000 MG in 0.9 % Sodium Chloride Mini Bag 100 ML IVPB SCH (08:04)
[2021-01-31] MEDS: levoFLOXacin 750 MG/150 ML 750 MG/150 ML BAG IVPB SCH (08:06)
[2021-01-31] MEDS ORDERED: 0.9 % Sodium Chloride 500 ML IV ONE ×2 (08:29→09:45)
[2021-01-31] MEDS ORDERED: 0.9 % Sodium Chloride 1,000 ML IV ONE (10:08)
[2021-01-31] MEDS ORDERED: Ketorolac 15 MG/ML VIAL IVP ONE (10:41)
[2021-01-31 10:55] LABS: INR 1.5; Prothrombin Time 16.2 Seconds (9.4-12.1)
[2021-01-31 10:57] LABS: Activated Partial Thrombo Time 37.8 Seconds (26.0-36.0)
[2021-01-31 11:14] LABS: Alanine Aminotransferase 15 Units/L (7-52); Albumin 2.9 g/dL (3.5-5.7); Albumin/Globulin Ratio 1.3 (1.1-2.2); Alkaline Phosphatase 183 Units/L (34-104); Aspartate Amino Transferase 32 Units/L (13-39); Bilirubin,Direct 0.6 mg/dL (0.0-0.2); Bilirubin,Indirect 0.7 mg/dL (0.0-1.0); Bilirubin,Total 1.3 mg/dL (0.3-1.0); Globulin 2.3 g/dL (2.4-3.5); Total Protein 5.2 g/dL (6.4-8.9)
[2021-01-31] MEDS: Albumin Human 5% 12.5 GM/250 ML IV.SOLN IVC SCH ×4 (12:27→15:00)
[2021-01-31] MEDS ORDERED: DAPTOmycin 500 MG in 0.9 % Sodium Chloride 100 ML IVPB SCH (13:00)
[2021-01-31 13:54] LABS: Creatine Kinase < 10 Units/L (30-223)
[2021-01-31] MEDS: *HR* OxyCODONE/APAP 7.5/325 TABLET PO PRN ×2 (14:33→23:25)
[2021-01-31] MEDS: diazePAM 5 MG TABLET PO PRN ×2 (16:23→21:11)
[2021-01-31] MEDS: QUEtiapine Fumarate 100 MG TABLET PO SCH (20:46)
[2021-02-01 02:50] LABS: % Iron Saturation 13 % (15-50); Transferrin 173 mg/dL (203-362)
[2021-02-01 05:09] LABS: Hemoglobin 7.6 g/dL (11.5-15.4)
[2021-02-01 05:11] LABS: Basophils % 0.4 %; Eosinophils # 0.1 K/mcL (0.0-0.6); Hematocrit 24.9 % (35.3-44.9); Immature Granulocytes % 0.4 % (0-4); Immature Platelets 10.1 % (1.1-6.1); Lymphocytes % 19.2 %; Mean Corpuscular HGB Conc 30.5 g/dL (31.6-35.5); Mean Corpuscular Hemoglobin 27.5 pg (28.0-33.3); Mean Corpuscular Volume 90.2 fL (83.0-100.0); Monocytes # 0.6 K/mcL (0.0-1.3); Monocytes % 11.7 %; Neutrophils # 3.4 K/mcL (1.6-8.9); Red Blood Count 2.76 M/mcL (3.82-4.97); Red Cell Distribution Width 18.8 % (11.5-14.5); Segmented Neutrophils % 67.3 %
[2021-02-01 05:12] LABS: Platelet Count 33 K/mcL (140-400)
[2021-02-01 05:25] LABS: BUN/Creatinine Ratio 22 (6-26); Blood Urea Nitrogen 16 mg/dL (6-20); Calcium 8.5 mg/dL (8.6-10.3); Carbon Dioxide 22 mEq/L (23-29); Chloride 109 mEq/L (98-107); Glucose 91 mg/dL (70-105); Osmolality,Calculated 285 (280-300); Sodium 137 mEq/L (136-145); eGFR For African Americans > 60 (> 60); eGFR For Non-African Americans > 60 (> 60)
[2021-02-01] MEDS ORDERED: Naloxone 0.4 MG/ML INJ IVP PRN (07:27)
[2021-02-01] MEDS ORDERED: Ondansetron ODT 4 MG TAB.RAPDIS SL PRN (07:27)
[2021-02-01] MEDS ORDERED: Melatonin 3 MG TABLET PO PRN (07:27)
[2021-02-01] MEDS: Lactobacillus 1 EACH CAP.SPRINK PO SCH ×2 (08:32→20:15)
[2021-02-01] MEDS: diazePAM 5 MG TABLET PO PRN ×2 (08:32→20:14)
[2021-02-01] MEDS: Multivit/Ca/Min/Fe/FA 1 TAB TABLET PO SCH (08:32)
[2021-02-01] MEDS: Magnesium Oxide 400 MG TABLET PO SCH ×2 (08:32→20:15)
[2021-02-01] MEDS: *HR* OxyCODONE/APAP 7.5/325 TABLET PO PRN ×2 (08:32→20:14)
[2021-02-01] MEDS: levoFLOXacin 750 MG/150 ML 750 MG/150 ML BAG IVPB SCH (08:33)
[2021-02-01] MEDS: Ertapenem 1,000 MG in 0.9 % Sodium Chloride Mini Bag 100 ML IVPB SCH (08:33)
[2021-02-01] MEDS: DAPTOmycin 500 MG in 0.9 % Sodium Chloride 100 ML IVPB SCH (17:11)
[2021-02-01] MEDS ORDERED: *HR* Heparin 5,000 UNIT/ML VIAL SQ SCH (18:00)
[2021-02-01] MEDS: QUEtiapine Fumarate 100 MG TABLET PO SCH (20:15)
[2021-02-01] MEDS: Acetaminophen 325 MG TABLET PO PRN (23:37)
[2021-02-02 05:38] LABS: Hemoglobin 7.6 g/dL (11.5-15.4); Red Cell Distribution Width 18.6 % (11.5-14.5)
[2021-02-02 05:40] LABS: Basophils % 0.4 %; Eosinophils # 0.1 K/mcL (0.0-0.6); Eosinophils % 1.2 %; Hematocrit 24.4 % (35.3-44.9); Immature Granulocytes % 0.6 % (0-4); Immature Platelets 11.1 % (1.1-6.1); Lymphocytes # 1.1 K/mcL (0.6-4.6); Mean Corpuscular HGB Conc 31.1 g/dL (31.6-35.5); Monocytes # 0.4 K/mcL (0.0-1.3); Monocytes % 8.8 %; Neutrophils # 3.4 K/mcL (1.6-8.9); Platelet Count 37 K/mcL (140-400); Red Blood Count 2.71 M/mcL (3.82-4.97)
[2021-02-02 05:55] LABS: BUN/Creatinine Ratio 21 (6-26); Blood Urea Nitrogen 15 mg/dL (6-20); Calcium 8.5 mg/dL (8.6-10.3); Carbon Dioxide 23 mEq/L (23-29); Chloride 108 mEq/L (98-107); Glucose 88 mg/dL (70-105); Osmolality,Calculated 282 (280-300); Potassium 4.1 mEq/L (3.5-5.1); Sodium 136 mEq/L (136-145); eGFR For African Americans > 60 (> 60); eGFR For Non-African Americans > 60 (> 60)
[2021-02-02] MEDS: diazePAM 5 MG TABLET PO PRN ×2 (07:58→21:02)
[2021-02-02] MEDS: *HR* OxyCODONE/APAP 7.5/325 TABLET PO PRN ×2 (07:58→21:02)
[2021-02-02] MEDS: Lactobacillus 1 EACH CAP.SPRINK PO SCH ×2 (07:59→21:02)
[2021-02-02] MEDS: Magnesium Oxide 400 MG TABLET PO SCH ×2 (07:59→21:02)
[2021-02-02] MEDS: Ertapenem 1,000 MG in 0.9 % Sodium Chloride Mini Bag 100 ML IVPB SCH (08:00)
[2021-02-02] MEDS: Multivit/Ca/Min/Fe/FA 1 TAB TABLET PO SCH (08:00)
[2021-02-02] MEDS: levoFLOXacin 750 MG/150 ML 750 MG/150 ML BAG IVPB SCH (08:03)
[2021-02-02] MEDS: Acetaminophen 325 MG TABLET PO PRN (15:15)
[2021-02-02] MEDS: DAPTOmycin 500 MG in 0.9 % Sodium Chloride 100 ML IVPB SCH (15:15)
[2021-02-02] MEDS: QUEtiapine Fumarate 100 MG TABLET PO SCH (21:02)
[2021-02-03] MEDS: Acetaminophen 325 MG TABLET PO PRN ×2 (02:11→20:13)
[2021-02-03] MEDS: *HR* OxyCODONE/APAP 7.5/325 TABLET PO PRN ×2 (03:39→15:31)
[2021-02-03 06:50] LABS: Basophils % 0.3 %; Hemoglobin 8.1 g/dL (11.5-15.4)
[2021-02-03 06:52] LABS: Eosinophils # 0.1 K/mcL (0.0-0.6); Eosinophils % 0.9 %; Hematocrit 25.7 % (35.3-44.9); Immature Granulocytes % 0.4 % (0-4); Immature Platelets 9.4 % (1.1-6.1); Lymphocytes % 12.8 %; Mean Corpuscular HGB Conc 31.5 g/dL (31.6-35.5); Mean Corpuscular Volume 88.9 fL (83.0-100.0); Monocytes # 0.7 K/mcL (0.0-1.3); Monocytes % 8.6 %; Neutrophils # 6.2 K/mcL (1.6-8.9); Red Blood Count 2.89 M/mcL (3.82-4.97); Red Cell Distribution Width 18.4 % (11.5-14.5)
[2021-02-03 07:00] LABS: BUN/Creatinine Ratio 16 (6-26); Blood Urea Nitrogen 13 mg/dL (6-20); Calcium 8.5 mg/dL (8.6-10.3); Carbon Dioxide 20 mEq/L (23-29); Chloride 107 mEq/L (98-107); Glucose 91 mg/dL (70-105); Osmolality,Calculated 280 (280-300); Potassium 3.7 mEq/L (3.5-5.1); Sodium 135 mEq/L (136-145); eGFR For African Americans > 60 (> 60); eGFR For Non-African Americans > 60 (> 60)
[2021-02-03 07:11] LABS: Platelet Count 43 K/mcL (140-400)
[2021-02-03] MEDS ORDERED: 0.9 % Sodium Chloride 1,000 ML IVC ONE (08:16)
[2021-02-03] MEDS ORDERED: 0.9 % Sodium Chloride 1,000 ML ONE (08:22)
[2021-02-03] MEDS: Ertapenem 1,000 MG in 0.9 % Sodium Chloride Mini Bag 100 ML IVPB SCH (09:45)
[2021-02-03] MEDS: levoFLOXacin 750 MG/150 ML 750 MG/150 ML BAG IVPB SCH (09:47)
[2021-02-03] MEDS: Lactobacillus 1 EACH CAP.SPRINK PO SCH ×2 (09:48→20:13)
[2021-02-03] MEDS: Magnesium Oxide 400 MG TABLET PO SCH ×2 (09:49→20:14)
[2021-02-03] MEDS: Multivit/Ca/Min/Fe/FA 1 TAB TABLET PO SCH (09:50)
[2021-02-03] MEDS: diazePAM 5 MG TABLET PO PRN ×2 (10:40→20:17)
[2021-02-03] MEDS ORDERED: Ketorolac 30 MG/ML VIAL IVP ONE (11:43)
[2021-02-03] MEDS: DAPTOmycin 500 MG in 0.9 % Sodium Chloride 100 ML IVPB SCH (15:31)
[2021-02-03] MEDS ORDERED: Nitroglycerin 0.4 MG TAB.SUBL SL ONE (18:19)
[2021-02-03] MEDS: QUEtiapine Fumarate 100 MG TABLET PO SCH (20:14)
[2021-02-04] MEDS: *HR* OxyCODONE/APAP 7.5/325 TABLET PO PRN ×3 (00:05→20:17)
[2021-02-04] MEDS: Acetaminophen 325 MG TABLET PO PRN ×2 (06:22→17:25)
[2021-02-04 06:45] LABS: Basophils % 0.3 %; Eosinophils % 2.1 %; Immature Granulocytes % 0.3 % (0-4)
[2021-02-04 06:47] LABS: Eosinophils # 0.1 K/mcL (0.0-0.6); Hematocrit 27.2 % (35.3-44.9); Hemoglobin 8.3 g/dL (11.5-15.4); Immature Platelets 6.9 % (1.1-6.1); Lymphocytes % 26.6 %; Mean Corpuscular HGB Conc 30.5 g/dL (31.6-35.5); Mean Corpuscular Volume 91.9 fL (83.0-100.0); Monocytes # 0.2 K/mcL (0.0-1.3); Monocytes % 5.5 %; Neutrophils # 2.5 K/mcL (1.6-8.9); Red Blood Count 2.96 M/mcL (3.82-4.97); Red Cell Distribution Width 18.6 % (11.5-14.5); Segmented Neutrophils % 65.2 %; White Blood Count 3.8 K/mcL (4.3-11.1)
[2021-02-04 06:53] LABS: Platelet Count 37 K/mcL (140-400)
[2021-02-04 07:01] LABS: BUN/Creatinine Ratio 16 (6-26); Blood Urea Nitrogen 15 mg/dL (6-20); Calcium 8.9 mg/dL (8.6-10.3); Carbon Dioxide 23 mEq/L (23-29); Chloride 111 mEq/L (98-107); Glucose 83 mg/dL (70-105); Osmolality,Calculated 288 (280-300); Potassium 4.6 mEq/L (3.5-5.1); Sodium 139 mEq/L (136-145); eGFR For African Americans > 60 (> 60); eGFR For Non-African Americans > 60 (> 60)
[2021-02-04] MEDS: Ertapenem 1,000 MG in 0.9 % Sodium Chloride Mini Bag 100 ML IVPB SCH (08:12)
[2021-02-04] MEDS: Lactobacillus 1 EACH CAP.SPRINK PO SCH ×2 (08:12→20:17)
[2021-02-04] MEDS: Multivit/Ca/Min/Fe/FA 1 TAB TABLET PO SCH (08:12)
[2021-02-04] MEDS: Magnesium Oxide 400 MG TABLET PO SCH ×2 (08:12→20:17)
[2021-02-04] MEDS: levoFLOXacin 750 MG/150 ML 750 MG/150 ML BAG IVPB SCH (08:14)
[2021-02-04] MEDS: diazePAM 5 MG TABLET PO PRN ×2 (08:45→20:17)
[2021-02-04] MEDS: DAPTOmycin 500 MG in 0.9 % Sodium Chloride 100 ML IVPB SCH (14:13)
[2021-02-04] MEDS: QUEtiapine Fumarate 100 MG TABLET PO SCH (20:17)
[2021-02-05 05:08] LABS: Hemoglobin 7.9 g/dL (11.5-15.4); Immature Granulocytes % 0.5 % (0-4); Mean Corpuscular Hemoglobin 27.8 pg (28.0-33.3); Red Blood Count 2.84 M/mcL (3.82-4.97); Red Cell Distribution Width 18.2 % (11.5-14.5)
[2021-02-05 05:10] LABS: Basophils % 0.8 %; Eosinophils # 0.1 K/mcL (0.0-0.6); Eosinophils % 1.8 %; Hematocrit 25.6 % (35.3-44.9); Immature Platelets 8.5 % (1.1-6.1); Lymphocytes # 0.9 K/mcL (0.6-4.6); Lymphocytes % 22.3 %; Mean Corpuscular HGB Conc 30.9 g/dL (31.6-35.5); Mean Corpuscular Volume 90.1 fL (83.0-100.0); Monocytes # 0.2 K/mcL (0.0-1.3); Neutrophils # 2.6 K/mcL (1.6-8.9); Segmented Neutrophils % 68.6 %; White Blood Count 3.8 K/mcL (4.3-11.1)
[2021-02-05 05:12] LABS: Platelet Count 36 K/mcL (140-400)
[2021-02-05 05:31] LABS: BUN/Creatinine Ratio 16 (6-26); Blood Urea Nitrogen 13 mg/dL (6-20); Calcium 8.6 mg/dL (8.6-10.3); Carbon Dioxide 22 mEq/L (23-29); Chloride 111 mEq/L (98-107); Glucose 84 mg/dL (70-105); Magnesium 1.9 mg/dL (1.6-2.6); Osmolality,Calculated 287 (280-300); Potassium 4.2 mEq/L (3.5-5.1); Sodium 139 mEq/L (136-145); eGFR For African Americans > 60 (> 60); eGFR For Non-African Americans > 60 (> 60)
[2021-02-05] MEDS: Ertapenem 1,000 MG in 0.9 % Sodium Chloride Mini Bag 100 ML IVPB SCH (09:04)
[2021-02-05] MEDS: levoFLOXacin 750 MG/150 ML 750 MG/150 ML BAG IVPB SCH (09:04)
[2021-02-05] MEDS: Magnesium Oxide 400 MG TABLET PO SCH ×2 (09:05→20:12)
[2021-02-05] MEDS: Lactobacillus 1 EACH CAP.SPRINK PO SCH ×2 (09:05→20:12)
[2021-02-05] MEDS: Multivit/Ca/Min/Fe/FA 1 TAB TABLET PO SCH (09:05)
[2021-02-05] MEDS: *HR* OxyCODONE/APAP 7.5/325 TABLET PO PRN ×2 (09:40→20:12)
[2021-02-05] MEDS: diazePAM 5 MG TABLET PO PRN ×2 (10:54→20:12)
[2021-02-05] MEDS: DAPTOmycin 500 MG in 0.9 % Sodium Chloride 100 ML IVPB SCH (15:24)
[2021-02-05] MEDS: Acetaminophen 325 MG TABLET PO PRN (18:06)
[2021-02-05] MEDS: QUEtiapine Fumarate 100 MG TABLET PO SCH (20:12)
[2021-02-06 05:46] LABS: Basophils % 0.2 %; Eosinophils # 0.1 K/mcL (0.0-0.6); Eosinophils % 1.8 %; Hematocrit 26.6 % (35.3-44.9); Hemoglobin 8.2 g/dL (11.5-15.4); Immature Granulocytes % 0.4 % (0-4); Immature Platelets 6.1 % (1.1-6.1); Lymphocytes # 0.8 K/mcL (0.6-4.6); Lymphocytes % 18.5 %; Mean Corpuscular HGB Conc 30.8 g/dL (31.6-35.5); Mean Corpuscular Hemoglobin 27.6 pg (28.0-33.3); Mean Corpuscular Volume 89.6 fL (83.0-100.0); Monocytes # 0.3 K/mcL (0.0-1.3); Monocytes % 6.8 %; Neutrophils # 3.3 K/mcL (1.6-8.9); Red Blood Count 2.97 M/mcL (3.82-4.97); Red Cell Distribution Width 18.3 % (11.5-14.5); Segmented Neutrophils % 72.3 %; White Blood Count 4.5 K/mcL (4.3-11.1)
[2021-02-06 05:48] LABS: Platelet Count 39 K/mcL (140-400)
[2021-02-06 06:02] LABS: BUN/Creatinine Ratio 16 (6-26); Blood Urea Nitrogen 12 mg/dL (6-20); Calcium 8.8 mg/dL (8.6-10.3); Carbon Dioxide 22 mEq/L (23-29); Chloride 111 mEq/L (98-107); Glucose 94 mg/dL (70-105); Osmolality,Calculated 290 (280-300); Potassium 4.4 mEq/L (3.5-5.1); Sodium 140 mEq/L (136-145); eGFR For African Americans > 60 (> 60); eGFR For Non-African Americans > 60 (> 60)
[2021-02-06] MEDS: Multivit/Ca/Min/Fe/FA 1 TAB TABLET PO SCH (07:56)
[2021-02-06] MEDS: levoFLOXacin 750 MG/150 ML 750 MG/150 ML BAG IVPB SCH (07:56)
[2021-02-06] MEDS: Magnesium Oxide 400 MG TABLET PO SCH ×2 (07:56→20:37)
[2021-02-06] MEDS: Ertapenem 1,000 MG in 0.9 % Sodium Chloride Mini Bag 100 ML IVPB SCH (07:56)
[2021-02-06] MEDS: Lactobacillus 1 EACH CAP.SPRINK PO SCH ×2 (07:56→20:37)
[2021-02-06] MEDS: diazePAM 5 MG TABLET PO PRN ×2 (08:18→20:37)
[2021-02-06] MEDS: *HR* OxyCODONE/APAP 7.5/325 TABLET PO PRN ×2 (08:18→20:37)
[2021-02-06] MEDS: DAPTOmycin 500 MG in 0.9 % Sodium Chloride 100 ML IVPB SCH (15:07)
[2021-02-06] MEDS: QUEtiapine Fumarate 100 MG TABLET PO SCH (20:37)
[2021-02-07 05:18] LABS: Basophils % 0.4 %; Hemoglobin 8.4 g/dL (11.5-15.4); Immature Granulocytes % 0.4 % (0-4)
[2021-02-07 05:20] LABS: Eosinophils # 0.1 K/mcL (0.0-0.6); Eosinophils % 2.2 %; Immature Platelets 6.8 % (1.1-6.1); Lymphocytes % 19.7 %; Mean Corpuscular HGB Conc 31.1 g/dL (31.6-35.5); Monocytes # 0.3 K/mcL (0.0-1.3); Monocytes % 6.3 %; Neutrophils # 3.5 K/mcL (1.6-8.9); White Blood Count 4.9 K/mcL (4.3-11.1)
[2021-02-07 05:31] LABS: Platelet Count 43 K/mcL (140-400)
[2021-02-07 05:50] LABS: BUN/Creatinine Ratio 21 (6-26); Blood Urea Nitrogen 15 mg/dL (6-20); Carbon Dioxide 24 mEq/L (23-29); Chloride 109 mEq/L (98-107); Glucose 87 mg/dL (70-105); Osmolality,Calculated 288 (280-300); Potassium 4.4 mEq/L (3.5-5.1); Sodium 139 mEq/L (136-145); eGFR For African Americans > 60 (> 60); eGFR For Non-African Americans > 60 (> 60)
[2021-02-07] MEDS: diazePAM 5 MG TABLET PO PRN ×3 (08:18→22:35)
[2021-02-07] MEDS: *HR* OxyCODONE/APAP 7.5/325 TABLET PO PRN ×2 (08:18→15:56)
[2021-02-07] MEDS: Magnesium Oxide 400 MG TABLET PO SCH ×2 (09:57→20:33)
[2021-02-07] MEDS: Multivit/Ca/Min/Fe/FA 1 TAB TABLET PO SCH (09:57)
[2021-02-07] MEDS: Lactobacillus 1 EACH CAP.SPRINK PO SCH ×2 (09:57→20:33)
[2021-02-07] MEDS: Ertapenem 1,000 MG in 0.9 % Sodium Chloride Mini Bag 100 ML IVPB SCH (10:02)
[2021-02-07] MEDS: levoFLOXacin 750 MG/150 ML 750 MG/150 ML BAG IVPB SCH (10:03)
[2021-02-07] MEDS: DAPTOmycin 500 MG in 0.9 % Sodium Chloride 100 ML IVPB SCH (14:43)
[2021-02-07] MEDS: QUEtiapine Fumarate 100 MG TABLET PO SCH (20:33)
[2021-02-08] MEDS: *HR* OxyCODONE/APAP 7.5/325 TABLET PO PRN ×2 (00:18→08:54)
[2021-02-08 04:53] LABS: Basophils % 0.4 %; Hemoglobin 9.1 g/dL (11.5-15.4); Red Cell Distribution Width 17.9 % (11.5-14.5)
[2021-02-08 04:54] LABS: Eosinophils # 0.1 K/mcL (0.0-0.6); Eosinophils % 1.6 %; Hematocrit 28.7 % (35.3-44.9); Immature Granulocytes % 0.4 % (0-4); Immature Platelets 5.9 % (1.1-6.1); Lymphocytes # 1.3 K/mcL (0.6-4.6); Mean Corpuscular HGB Conc 31.7 g/dL (31.6-35.5); Mean Corpuscular Hemoglobin 28.3 pg (28.0-33.3); Mean Corpuscular Volume 89.1 fL (83.0-100.0); Monocytes # 0.5 K/mcL (0.0-1.3); Monocytes % 7.5 %; Neutrophils # 4.8 K/mcL (1.6-8.9); Red Blood Count 3.22 M/mcL (3.82-4.97); Segmented Neutrophils % 71.1 %; White Blood Count 6.8 K/mcL (4.3-11.1)
[2021-02-08 04:55] LABS: Platelet Count 49 K/mcL (140-400)
[2021-02-08 05:12] LABS: BUN/Creatinine Ratio 21 (6-26); Blood Urea Nitrogen 16 mg/dL (6-20); Carbon Dioxide 23 mEq/L (23-29); Chloride 108 mEq/L (98-107); Glucose 82 mg/dL (70-105); Osmolality,Calculated 284 (280-300); Potassium 4.4 mEq/L (3.5-5.1); Sodium 137 mEq/L (136-145); eGFR For African Americans > 60 (> 60); eGFR For Non-African Americans > 60 (> 60)
[2021-02-08] MEDS: Ertapenem 1,000 MG in 0.9 % Sodium Chloride Mini Bag 100 ML IVPB SCH (08:33)
[2021-02-08] MEDS: levoFLOXacin 750 MG/150 ML 750 MG/150 ML BAG IVPB SCH (08:34)
[2021-02-08] MEDS: Magnesium Oxide 400 MG TABLET PO SCH ×2 (08:34→20:54)
[2021-02-08] MEDS: Lactobacillus 1 EACH CAP.SPRINK PO SCH ×2 (08:34→20:54)
[2021-02-08] MEDS: Multivit/Ca/Min/Fe/FA 1 TAB TABLET PO SCH (08:34)
[2021-02-08] MEDS: diazePAM 5 MG TABLET PO PRN ×2 (08:54→17:11)
[2021-02-08] MEDS ORDERED: *HR* Enoxaparin 40 MG/0.4 ML SYRINGE SQ ONE (13:46)
[2021-02-08] MEDS: *HR* OxyCODONE/APAP 10/325 TABLET PO PRN ×2 (17:11→23:51)
[2021-02-08] MEDS: QUEtiapine Fumarate 100 MG TABLET PO SCH (20:54)
[2021-02-09] MEDS: diazePAM 5 MG TABLET PO PRN ×2 (02:05→20:10)
[2021-02-09] MEDS: *HR* Enoxaparin 40 MG/0.4 ML SYRINGE SQ SCH (05:48)
[2021-02-09] MEDS: *HR* OxyCODONE/APAP 10/325 TABLET PO PRN ×3 (05:49→18:34)
[2021-02-09 06:12] LABS: Basophils % 0.4 %
[2021-02-09 06:15] LABS: Eosinophils # 0.1 K/mcL (0.0-0.6); Eosinophils % 1.4 %; Hematocrit 29.2 % (35.3-44.9); Immature Granulocytes % 0.4 % (0-4); Lymphocytes % 18.5 %; Mean Corpuscular HGB Conc 30.8 g/dL (31.6-35.5); Mean Corpuscular Hemoglobin 27.6 pg (28.0-33.3); Mean Corpuscular Volume 89.6 fL (83.0-100.0); Monocytes # 0.4 K/mcL (0.0-1.3); Monocytes % 7.1 %; Platelet Count 39 K/mcL (140-400); Red Blood Count 3.26 M/mcL (3.82-4.97); Red Cell Distribution Width 17.7 % (11.5-14.5); Segmented Neutrophils % 72.2 %; White Blood Count 5.6 K/mcL (4.3-11.1)
[2021-02-09 06:34] LABS: BUN/Creatinine Ratio 25 (6-26); Blood Urea Nitrogen 21 mg/dL (6-20); Carbon Dioxide 24 mEq/L (23-29); Chloride 105 mEq/L (98-107); Glucose 95 mg/dL (70-105); Osmolality,Calculated 285 (280-300); Potassium 4.3 mEq/L (3.5-5.1); Sodium 136 mEq/L (136-145); eGFR For African Americans > 60 (> 60); eGFR For Non-African Americans > 60 (> 60)
[2021-02-09] MEDS: Ertapenem 1,000 MG in 0.9 % Sodium Chloride Mini Bag 100 ML IVPB SCH (09:35)
[2021-02-09] MEDS: levoFLOXacin 750 MG/150 ML 750 MG/150 ML BAG IVPB SCH (09:35)
[2021-02-09] MEDS: Multivit/Ca/Min/Fe/FA 1 TAB TABLET PO SCH (09:36)
[2021-02-09] MEDS: Lactobacillus 1 EACH CAP.SPRINK PO SCH ×2 (09:36→20:09)
[2021-02-09] MEDS: Magnesium Oxide 400 MG TABLET PO SCH ×2 (09:36→20:09)
[2021-02-09] MEDS: QUEtiapine Fumarate 100 MG TABLET PO SCH (20:10)
[2021-02-10] MEDS: *HR* OxyCODONE/APAP 10/325 TABLET PO PRN ×3 (03:26→18:00)
[2021-02-10] MEDS: diazePAM 5 MG TABLET PO PRN (06:02)
[2021-02-10] MEDS: *HR* Enoxaparin 40 MG/0.4 ML SYRINGE SQ SCH (06:06)
[2021-02-10 06:16] LABS: Basophils % 0.3 %; Eosinophils # 0.1 K/mcL (0.0-0.6); Eosinophils % 0.8 %; Hematocrit 30.1 % (35.3-44.9); Hemoglobin 9.3 g/dL (11.5-15.4); Immature Granulocytes % 0.3 % (0-4); Immature Platelets 6.2 % (1.1-6.1); Lymphocytes # 1.1 K/mcL (0.6-4.6); Lymphocytes % 12.1 %; Mean Corpuscular HGB Conc 30.9 g/dL (31.6-35.5); Mean Corpuscular Hemoglobin 27.6 pg (28.0-33.3); Mean Corpuscular Volume 89.3 fL (83.0-100.0); Monocytes # 0.8 K/mcL (0.0-1.3); Monocytes % 8.6 %; Neutrophils # 6.8 K/mcL (1.6-8.9); Red Blood Count 3.37 M/mcL (3.82-4.97); Red Cell Distribution Width 17.6 % (11.5-14.5); Segmented Neutrophils % 77.9 %; White Blood Count 8.7 K/mcL (4.3-11.1)
[2021-02-10 06:17] LABS: Platelet Count 42 K/mcL (140-400)
[2021-02-10 06:34] LABS: BUN/Creatinine Ratio 29 (6-26); Blood Urea Nitrogen 25 mg/dL (6-20); Calcium 8.9 mg/dL (8.6-10.3); Carbon Dioxide 24 mEq/L (23-29); Chloride 103 mEq/L (98-107); Glucose 111 mg/dL (70-105); Osmolality,Calculated 281 (280-300); Potassium 4.3 mEq/L (3.5-5.1); Sodium 133 mEq/L (136-145); eGFR For African Americans > 60 (> 60); eGFR For Non-African Americans > 60 (> 60)
[2021-02-10] MEDS: levoFLOXacin 750 MG/150 ML 750 MG/150 ML BAG IVPB SCH (08:19)
[2021-02-10] MEDS: Lactobacillus 1 EACH CAP.SPRINK PO SCH ×2 (08:19→20:27)
[2021-02-10] MEDS: Magnesium Oxide 400 MG TABLET PO SCH ×2 (08:20→20:27)
[2021-02-10] MEDS: Multivit/Ca/Min/Fe/FA 1 TAB TABLET PO SCH (08:20)
[2021-02-10] MEDS: Ertapenem 1,000 MG in 0.9 % Sodium Chloride Mini Bag 100 ML IVPB SCH (08:32)
[2021-02-10] MEDS ORDERED: Sennosides/Docusate Sodium TABLET PO PRN (17:43)
[2021-02-10] MEDS: Acetaminophen 325 MG TABLET PO PRN (20:27)
[2021-02-10] MEDS: QUEtiapine Fumarate 100 MG TABLET PO SCH (20:27)
[2021-02-11] MEDS: *HR* OxyCODONE/APAP 10/325 TABLET PO PRN ×3 (00:57→21:23)
[2021-02-11] MEDS: *HR* Enoxaparin 40 MG/0.4 ML SYRINGE SQ SCH (05:31)
[2021-02-11 06:13] LABS: BUN/Creatinine Ratio 25 (6-26); Blood Urea Nitrogen 20 mg/dL (6-20); Carbon Dioxide 24 mEq/L (23-29); Chloride 104 mEq/L (98-107); Glucose 106 mg/dL (70-105); Osmolality,Calculated 281 (280-300); Potassium 3.8 mEq/L (3.5-5.1); Sodium 134 mEq/L (136-145); eGFR For African Americans > 60 (> 60); eGFR For Non-African Americans > 60 (> 60)
[2021-02-11 06:14] LABS: Basophils % 0.3 %; Hematocrit 28.4 % (35.3-44.9); Hemoglobin 8.9 g/dL (11.5-15.4); Mean Corpuscular HGB Conc 31.3 g/dL (31.6-35.5)
[2021-02-11 06:16] LABS: Eosinophils # 0.1 K/mcL (0.0-0.6); Eosinophils % 0.8 %; Immature Granulocytes % 0.4 % (0-4); Immature Platelets 8.1 % (1.1-6.1); Lymphocytes # 0.9 K/mcL (0.6-4.6); Lymphocytes % 10.9 %; Mean Corpuscular Hemoglobin 27.9 pg (28.0-33.3); Monocytes # 0.8 K/mcL (0.0-1.3); Neutrophils # 6.1 K/mcL (1.6-8.9); Red Blood Count 3.19 M/mcL (3.82-4.97); Red Cell Distribution Width 17.2 % (11.5-14.5); Segmented Neutrophils % 77.6 %; White Blood Count 7.9 K/mcL (4.3-11.1)
[2021-02-11 07:42] LABS: Platelet Count 39 K/mcL (140-400)
[2021-02-11] MEDS: Ertapenem 1,000 MG in 0.9 % Sodium Chloride Mini Bag 100 ML IVPB SCH (09:35)
[2021-02-11] MEDS: Multivit/Ca/Min/Fe/FA 1 TAB TABLET PO SCH (09:35)
[2021-02-11] MEDS: Magnesium Oxide 400 MG TABLET PO SCH ×2 (09:35→21:23)
[2021-02-11] MEDS: levoFLOXacin 750 MG/150 ML 750 MG/150 ML BAG IVPB SCH (09:35)
[2021-02-11] MEDS: Lactobacillus 1 EACH CAP.SPRINK PO SCH ×2 (09:35→21:23)
[2021-02-11] MEDS: diazePAM 5 MG TABLET PO PRN (09:51)
[2021-02-11] MEDS: Acetaminophen 325 MG TABLET PO PRN ×2 (14:11→23:41)
[2021-02-11] MEDS: QUEtiapine Fumarate 100 MG TABLET PO SCH (21:23)
[2021-02-12] MEDS: *HR* Enoxaparin 40 MG/0.4 ML SYRINGE SQ SCH (05:49)
[2021-02-12 06:24] LABS: Hematocrit 26.6 % (35.3-44.9); Hemoglobin 8.4 g/dL (11.5-15.4); Immature Platelets 9.3 % (1.1-6.1); Mean Corpuscular HGB Conc 31.6 g/dL (31.6-35.5); Mean Corpuscular Hemoglobin 28.1 pg (28.0-33.3); Red Blood Count 2.99 M/mcL (3.82-4.97); Red Cell Distribution Width 16.9 % (11.5-14.5); White Blood Count 6.7 K/mcL (4.3-11.1)
[2021-02-12 06:26] LABS: Platelet Count 35 K/mcL (140-400)
[2021-02-12 06:42] LABS: BUN/Creatinine Ratio 27 (6-26); Blood Urea Nitrogen 19 mg/dL (6-20); Calcium 8.6 mg/dL (8.6-10.3); Carbon Dioxide 24 mEq/L (23-29); Chloride 104 mEq/L (98-107); Glucose 96 mg/dL (70-105); Osmolality,Calculated 280 (280-300); Potassium 3.8 mEq/L (3.5-5.1); Sodium 134 mEq/L (136-145); eGFR For African Americans > 60 (> 60); eGFR For Non-African Americans > 60 (> 60)
[2021-02-12] MEDS: Lactobacillus 1 EACH CAP.SPRINK PO SCH ×2 (09:19→21:08)
[2021-02-12] MEDS: *HR* OxyCODONE/APAP 10/325 TABLET PO PRN ×2 (09:19→17:51)
[2021-02-12] MEDS: Ertapenem 1,000 MG in 0.9 % Sodium Chloride Mini Bag 100 ML IVPB SCH (09:20)
[2021-02-12] MEDS: Magnesium Oxide 400 MG TABLET PO SCH ×2 (09:20→21:08)
[2021-02-12] MEDS: levoFLOXacin 750 MG/150 ML 750 MG/150 ML BAG IVPB SCH (09:20)
[2021-02-12] MEDS: Multivit/Ca/Min/Fe/FA 1 TAB TABLET PO SCH (09:20)
[2021-02-12] MEDS: diazePAM 5 MG TABLET PO PRN (11:54)
[2021-02-12] MEDS: QUEtiapine Fumarate 100 MG TABLET PO SCH (21:08)
[2021-02-13] MEDS: *HR* OxyCODONE/APAP 10/325 TABLET PO PRN ×3 (00:20→18:37)
[2021-02-13] MEDS: *HR* Enoxaparin 40 MG/0.4 ML SYRINGE SQ SCH (06:27)
[2021-02-13 08:18] LABS: Hemoglobin 8.3 g/dL (11.5-15.4); Immature Platelets 10.8 % (1.1-6.1); Mean Corpuscular HGB Conc 30.7 g/dL (31.6-35.5); Mean Corpuscular Hemoglobin 27.4 pg (28.0-33.3); Mean Corpuscular Volume 89.1 fL (83.0-100.0); Red Blood Count 3.03 M/mcL (3.82-4.97); Red Cell Distribution Width 16.6 % (11.5-14.5); White Blood Count 3.8 K/mcL (4.3-11.1)
[2021-02-13 08:24] LABS: Platelet Count 37 K/mcL (140-400)
[2021-02-13 08:37] LABS: BUN/Creatinine Ratio 31 (6-26); Blood Urea Nitrogen 23 mg/dL (6-20); Calcium 8.6 mg/dL (8.6-10.3); Carbon Dioxide 23 mEq/L (23-29); Chloride 105 mEq/L (98-107); Glucose 90 mg/dL (70-105); Osmolality,Calculated 287 (280-300); Potassium 3.7 mEq/L (3.5-5.1); Sodium 137 mEq/L (136-145); eGFR For African Americans > 60 (> 60); eGFR For Non-African Americans > 60 (> 60)
[2021-02-13] MEDS: Multivit/Ca/Min/Fe/FA 1 TAB TABLET PO SCH (10:04)
[2021-02-13] MEDS: levoFLOXacin 750 MG/150 ML 750 MG/150 ML BAG IVPB SCH (10:04)
[2021-02-13] MEDS: Lactobacillus 1 EACH CAP.SPRINK PO SCH ×2 (10:04→20:24)
[2021-02-13] MEDS: Ertapenem 1,000 MG in 0.9 % Sodium Chloride Mini Bag 100 ML IVPB SCH (10:04)
[2021-02-13] MEDS: Magnesium Oxide 400 MG TABLET PO SCH ×2 (10:04→20:24)
[2021-02-13] MEDS: diazePAM 5 MG TABLET PO PRN ×2 (10:25→22:28)
[2021-02-13] MEDS: QUEtiapine Fumarate 100 MG TABLET PO SCH (20:24)
[2021-02-13] MEDS: Acetaminophen 325 MG TABLET PO PRN (22:28)
[2021-02-14] MEDS: *HR* OxyCODONE/APAP 10/325 TABLET PO PRN ×3 (02:37→17:12)
[2021-02-14 03:19] LABS: Basophils % 0.3 %; Eosinophils # 0.1 K/mcL (0.0-0.6); Eosinophils % 1.5 %; Immature Granulocytes % 0.3 % (0-4); White Blood Count 3.4 K/mcL (4.3-11.1)
[2021-02-14 03:20] LABS: Hematocrit 28.8 % (35.3-44.9); Hemoglobin 8.6 g/dL (11.5-15.4); Immature Platelets 7.6 % (1.1-6.1); Lymphocytes # 0.7 K/mcL (0.6-4.6); Lymphocytes % 21.2 %; Mean Corpuscular HGB Conc 29.9 g/dL (31.6-35.5); Mean Corpuscular Hemoglobin 27.9 pg (28.0-33.3); Mean Corpuscular Volume 93.5 fL (83.0-100.0); Monocytes # 0.2 K/mcL (0.0-1.3); Monocytes % 7.1 %; Neutrophils # 2.4 K/mcL (1.6-8.9); Red Blood Count 3.08 M/mcL (3.82-4.97); Segmented Neutrophils % 69.6 %
[2021-02-14 03:22] LABS: Platelet Count 34 K/mcL (140-400)
[2021-02-14 03:40] LABS: BUN/Creatinine Ratio 26 (6-26); Blood Urea Nitrogen 21 mg/dL (6-20); Calcium 8.7 mg/dL (8.6-10.3); Carbon Dioxide 20 mEq/L (23-29); Chloride 106 mEq/L (98-107); Glucose 92 mg/dL (70-105); Osmolality,Calculated 281 (280-300); Potassium 4.1 mEq/L (3.5-5.1); Sodium 134 mEq/L (136-145); eGFR For African Americans > 60 (> 60); eGFR For Non-African Americans > 60 (> 60)
[2021-02-14] MEDS: *HR* Enoxaparin 40 MG/0.4 ML SYRINGE SQ SCH (05:38)
[2021-02-14] MEDS: Lactobacillus 1 EACH CAP.SPRINK PO SCH ×2 (09:59→21:10)
[2021-02-14] MEDS: levoFLOXacin 750 MG/150 ML 750 MG/150 ML BAG IVPB SCH (09:59)
[2021-02-14] MEDS: Magnesium Oxide 400 MG TABLET PO SCH ×2 (09:59→21:11)
[2021-02-14] MEDS: Ertapenem 1,000 MG in 0.9 % Sodium Chloride Mini Bag 100 ML IVPB SCH (09:59)
[2021-02-14] MEDS: Multivit/Ca/Min/Fe/FA 1 TAB TABLET PO SCH (09:59)
[2021-02-14] MEDS: diazePAM 5 MG TABLET PO PRN (17:16)
[2021-02-14] MEDS: QUEtiapine Fumarate 100 MG TABLET PO SCH (21:10)
[2021-02-15] MEDS: *HR* OxyCODONE/APAP 10/325 TABLET PO PRN ×3 (00:18→18:10)
[2021-02-15] MEDS: diazePAM 5 MG TABLET PO PRN ×3 (03:26→21:09)
[2021-02-15] MEDS: *HR* Enoxaparin 40 MG/0.4 ML SYRINGE SQ SCH (06:18)
[2021-02-15] MEDS: Lactobacillus 1 EACH CAP.SPRINK PO SCH ×2 (08:55→21:09)
[2021-02-15] MEDS: Multivit/Ca/Min/Fe/FA 1 TAB TABLET PO SCH (08:55)
[2021-02-15] MEDS: Magnesium Oxide 400 MG TABLET PO SCH ×2 (08:56→21:10)
[2021-02-15] MEDS: levoFLOXacin 750 MG/150 ML 750 MG/150 ML BAG IVPB SCH (08:57)
[2021-02-15] MEDS: Ertapenem 1,000 MG in 0.9 % Sodium Chloride Mini Bag 100 ML IVPB SCH (08:59)
[2021-02-15 12:22] LABS: Basophils % 0.5 %; Red Cell Distribution Width 16.6 % (11.5-14.5)
[2021-02-15 12:24] LABS: Hematocrit 27.2 % (35.3-44.9); Hemoglobin 8.6 g/dL (11.5-15.4); Immature Granulocytes % 0.2 % (0-4); Immature Platelets 7.9 % (1.1-6.1); Lymphocytes # 0.7 K/mcL (0.6-4.6); Mean Corpuscular HGB Conc 31.6 g/dL (31.6-35.5); Mean Corpuscular Hemoglobin 27.7 pg (28.0-33.3); Mean Corpuscular Volume 87.7 fL (83.0-100.0); Monocytes # 0.3 K/mcL (0.0-1.3); Monocytes % 7.5 %; Segmented Neutrophils % 73.8 %; White Blood Count 4.1 K/mcL (4.3-11.1)
[2021-02-15 12:32] LABS: Platelet Count 35 K/mcL (140-400)
[2021-02-15 12:39] LABS: BUN/Creatinine Ratio 31 (6-26); Blood Urea Nitrogen 20 mg/dL (6-20); Calcium 8.5 mg/dL (8.6-10.3); Carbon Dioxide 22 mEq/L (23-29); Chloride 105 mEq/L (98-107); Glucose 103 mg/dL (70-105); Osmolality,Calculated 281 (280-300); Potassium 3.8 mEq/L (3.5-5.1); Sodium 134 mEq/L (136-145); eGFR For African Americans > 60 (> 60); eGFR For Non-African Americans > 60 (> 60)
[2021-02-15] MEDS: QUEtiapine Fumarate 100 MG TABLET PO SCH (21:09)
[2021-02-16] MEDS: *HR* OxyCODONE/APAP 10/325 TABLET PO PRN ×4 (00:13→22:52)
[2021-02-16] MEDS: *HR* Enoxaparin 40 MG/0.4 ML SYRINGE SQ SCH (05:05)
[2021-02-16 05:18] LABS: Basophils % 0.3 %; Hemoglobin 8.8 g/dL (11.5-15.4)
[2021-02-16 05:20] LABS: Eosinophils # 0.1 K/mcL (0.0-0.6); Eosinophils % 1.6 %; Hematocrit 27.7 % (35.3-44.9); Immature Granulocytes % 0.5 % (0-4); Immature Platelets 7.8 % (1.1-6.1); Lymphocytes % 16.6 %; Mean Corpuscular HGB Conc 31.8 g/dL (31.6-35.5); Mean Corpuscular Hemoglobin 27.8 pg (28.0-33.3); Mean Corpuscular Volume 87.7 fL (83.0-100.0); Monocytes # 0.4 K/mcL (0.0-1.3); Monocytes % 7.1 %; Neutrophils # 4.6 K/mcL (1.6-8.9); Red Blood Count 3.16 M/mcL (3.82-4.97); Red Cell Distribution Width 16.6 % (11.5-14.5); Segmented Neutrophils % 73.9 %; White Blood Count 6.2 K/mcL (4.3-11.1)
[2021-02-16 05:33] LABS: Platelet Count 41 K/mcL (140-400)
[2021-02-16 05:40] LABS: BUN/Creatinine Ratio 28 (6-26); Blood Urea Nitrogen 19 mg/dL (6-20); Calcium 8.6 mg/dL (8.6-10.3); Carbon Dioxide 23 mEq/L (23-29); Chloride 106 mEq/L (98-107); Glucose 94 mg/dL (70-105); Osmolality,Calculated 282 (280-300); Potassium 4.1 mEq/L (3.5-5.1); Sodium 135 mEq/L (136-145); eGFR For African Americans > 60 (> 60); eGFR For Non-African Americans > 60 (> 60)
[2021-02-16] MEDS: Multivit/Ca/Min/Fe/FA 1 TAB TABLET PO SCH (08:41)
[2021-02-16] MEDS: Lactobacillus 1 EACH CAP.SPRINK PO SCH ×2 (08:41→20:06)
[2021-02-16] MEDS: Magnesium Oxide 400 MG TABLET PO SCH ×2 (08:42→20:06)
[2021-02-16] MEDS: Ertapenem 1,000 MG in 0.9 % Sodium Chloride Mini Bag 100 ML IVPB SCH (08:42)
[2021-02-16] MEDS: levoFLOXacin 750 MG/150 ML 750 MG/150 ML BAG IVPB SCH (08:43)
[2021-02-16] MEDS: diazePAM 5 MG TABLET PO PRN ×2 (11:12→20:06)
[2021-02-16] MEDS: QUEtiapine Fumarate 100 MG TABLET PO SCH (20:06)
[2021-02-17] MEDS: *HR* Enoxaparin 40 MG/0.4 ML SYRINGE SQ SCH (05:48)
[2021-02-17 07:29] LABS: Basophils % 0.4 %; Eosinophils # 0.1 K/mcL (0.0-0.6); Eosinophils % 1.6 %; Hematocrit 27.4 % (35.3-44.9); Hemoglobin 8.4 g/dL (11.5-15.4); Immature Granulocytes % 0.5 % (0-4); Lymphocytes # 0.9 K/mcL (0.6-4.6); Lymphocytes % 16.5 %; Mean Corpuscular HGB Conc 30.7 g/dL (31.6-35.5); Mean Corpuscular Hemoglobin 27.1 pg (28.0-33.3); Mean Corpuscular Volume 88.4 fL (83.0-100.0); Monocytes # 0.4 K/mcL (0.0-1.3); Monocytes % 7.7 %; Neutrophils # 4.2 K/mcL (1.6-8.9); Platelet Count 60 K/mcL (140-400); Red Cell Distribution Width 16.8 % (11.5-14.5); Segmented Neutrophils % 73.3 %; White Blood Count 5.7 K/mcL (4.3-11.1)
[2021-02-17 07:38] LABS: BUN/Creatinine Ratio 27 (6-26); Blood Urea Nitrogen 17 mg/dL (6-20); Calcium 8.8 mg/dL (8.6-10.3); Carbon Dioxide 25 mEq/L (23-29); Chloride 105 mEq/L (98-107); Glucose 81 mg/dL (70-105); Osmolality,Calculated 283 (280-300); Potassium 4.2 mEq/L (3.5-5.1); Sodium 136 mEq/L (136-145); eGFR For African Americans > 60 (> 60); eGFR For Non-African Americans > 60 (> 60)
[2021-02-17] MEDS: levoFLOXacin 750 MG/150 ML 750 MG/150 ML BAG IVPB SCH (08:43)
[2021-02-17] MEDS: Ertapenem 1,000 MG in 0.9 % Sodium Chloride Mini Bag 100 ML IVPB SCH (08:43)
[2021-02-17] MEDS: *HR* OxyCODONE/APAP 10/325 TABLET PO PRN ×3 (08:44→22:35)
[2021-02-17] MEDS: Multivit/Ca/Min/Fe/FA 1 TAB TABLET PO SCH (08:45)
[2021-02-17] MEDS: Lactobacillus 1 EACH CAP.SPRINK PO SCH ×2 (08:45→20:32)
[2021-02-17] MEDS: Magnesium Oxide 400 MG TABLET PO SCH ×2 (08:46→20:32)
[2021-02-17] MEDS: diazePAM 5 MG TABLET PO PRN ×2 (11:35→20:31)
[2021-02-17] MEDS: QUEtiapine Fumarate 100 MG TABLET PO SCH ×2 (20:31→22:35)
[2021-02-18] MEDS: *HR* Enoxaparin 40 MG/0.4 ML SYRINGE SQ SCH (05:27)
[2021-02-18 07:09] LABS: Basophils % 0.5 %; Eosinophils % 1.7 %
[2021-02-18 07:11] LABS: Eosinophils # 0.1 K/mcL (0.0-0.6); Hematocrit 26.4 % (35.3-44.9); Hemoglobin 8.2 g/dL (11.5-15.4); Immature Granulocytes % 0.2 % (0-4); Immature Platelets 8.1 % (1.1-6.1); Lymphocytes # 0.9 K/mcL (0.6-4.6); Lymphocytes % 20.8 %; Mean Corpuscular HGB Conc 31.1 g/dL (31.6-35.5); Mean Corpuscular Hemoglobin 27.6 pg (28.0-33.3); Mean Corpuscular Volume 88.9 fL (83.0-100.0); Monocytes # 0.3 K/mcL (0.0-1.3); Monocytes % 7.2 %; Neutrophils # 2.9 K/mcL (1.6-8.9); Platelet Count 38 K/mcL (140-400); Red Blood Count 2.97 M/mcL (3.82-4.97); Red Cell Distribution Width 16.7 % (11.5-14.5); Segmented Neutrophils % 69.6 %; White Blood Count 4.2 K/mcL (4.3-11.1)
[2021-02-18 07:28] LABS: BUN/Creatinine Ratio 31 (6-26); Blood Urea Nitrogen 19 mg/dL (6-20); Calcium 8.6 mg/dL (8.6-10.3); Carbon Dioxide 26 mEq/L (23-29); Chloride 107 mEq/L (98-107); Glucose 95 mg/dL (70-105); Osmolality,Calculated 286 (280-300); Potassium 4.3 mEq/L (3.5-5.1); Sodium 137 mEq/L (136-145); eGFR For African Americans > 60 (> 60); eGFR For Non-African Americans > 60 (> 60)
[2021-02-18] MEDS: Lactobacillus 1 EACH CAP.SPRINK PO SCH ×2 (08:41→22:08)
[2021-02-18] MEDS: Multivit/Ca/Min/Fe/FA 1 TAB TABLET PO SCH (08:42)
[2021-02-18] MEDS: Magnesium Oxide 400 MG TABLET PO SCH ×2 (08:42→22:09)
[2021-02-18] MEDS: levoFLOXacin 750 MG/150 ML 750 MG/150 ML BAG IVPB SCH (08:45)
[2021-02-18] MEDS: *HR* OxyCODONE/APAP 10/325 TABLET PO PRN ×3 (09:01→22:09)
[2021-02-18] MEDS: Ertapenem 1,000 MG in 0.9 % Sodium Chloride Mini Bag 100 ML IVPB SCH (09:03)
[2021-02-18] MEDS: diazePAM 5 MG TABLET PO PRN ×2 (13:09→22:08)
[2021-02-18] MEDS: QUEtiapine Fumarate 100 MG TABLET PO SCH (22:08)
[2021-02-19] MEDS: *HR* Enoxaparin 40 MG/0.4 ML SYRINGE SQ SCH (06:21)
[2021-02-19] MEDS: levoFLOXacin 750 MG/150 ML 750 MG/150 ML BAG IVPB SCH (08:55)
[2021-02-19] MEDS: Lactobacillus 1 EACH CAP.SPRINK PO SCH ×2 (08:56→21:15)
[2021-02-19] MEDS: Magnesium Oxide 400 MG TABLET PO SCH ×2 (08:56→21:16)
[2021-02-19] MEDS: Multivit/Ca/Min/Fe/FA 1 TAB TABLET PO SCH (08:56)
[2021-02-19] MEDS: *HR* OxyCODONE/APAP 10/325 TABLET PO PRN ×3 (08:56→22:47)
[2021-02-19] MEDS: Ertapenem 1,000 MG in 0.9 % Sodium Chloride Mini Bag 100 ML IVPB SCH (08:56)
[2021-02-19] MEDS: diazePAM 5 MG TABLET PO PRN ×2 (10:19→21:20)
[2021-02-19] MEDS: QUEtiapine Fumarate 100 MG TABLET PO SCH (21:15)
[2021-02-20] MEDS: *HR* Enoxaparin 40 MG/0.4 ML SYRINGE SQ SCH (05:28)
[2021-02-20 06:03] LABS: Hematocrit 27.3 % (35.3-44.9)
[2021-02-20 06:05] LABS: Hemoglobin 8.9 g/dL (11.5-15.4); Immature Platelets 9.8 % (1.1-6.1); Mean Corpuscular HGB Conc 32.6 g/dL (31.6-35.5); Mean Corpuscular Hemoglobin 28.5 pg (28.0-33.3); Mean Corpuscular Volume 87.5 fL (83.0-100.0); Platelet Count 48 K/mcL (140-400); Red Blood Count 3.12 M/mcL (3.82-4.97); Red Cell Distribution Width 16.7 % (11.5-14.5); White Blood Count 4.7 K/mcL (4.3-11.1)
[2021-02-20 06:21] LABS: BUN/Creatinine Ratio 30 (6-26); Blood Urea Nitrogen 20 mg/dL (6-20); Calcium 8.8 mg/dL (8.6-10.3); Carbon Dioxide 23 mEq/L (23-29); Chloride 106 mEq/L (98-107); Glucose 83 mg/dL (70-105); Magnesium 1.9 mg/dL (1.6-2.6); Osmolality,Calculated 286 (280-300); Sodium 137 mEq/L (136-145); eGFR For African Americans > 60 (> 60); eGFR For Non-African Americans > 60 (> 60)
[2021-02-20 07:14] VITALS: BP 93/71; PULSE 91; TEMP 98.1; O2SAT 96
[2021-02-20] MEDS: Multivit/Ca/Min/Fe/FA 1 TAB TABLET PO SCH (07:58)
[2021-02-20] MEDS: Lactobacillus 1 EACH CAP.SPRINK PO SCH (07:58)
[2021-02-20] MEDS: Ertapenem 1,000 MG in 0.9 % Sodium Chloride Mini Bag 100 ML IVPB SCH (07:59)
[2021-02-20] MEDS: Magnesium Oxide 400 MG TABLET PO SCH (07:59)
[2021-02-20] MEDS: levoFLOXacin 750 MG/150 ML 750 MG/150 ML BAG IVPB SCH (07:59)
[2021-02-20] MEDS: *HR* OxyCODONE/APAP 10/325 TABLET PO PRN (08:13)
[2021-02-20] MEDS: diazePAM 5 MG TABLET PO PRN (11:04)
== END 2021-02-20 11:12 | disposition short-term general hospital (02) | DRG 720 ==
LOC: 2NENU 23:12 → EMEROOARM 23:12 → SUATTDRO 01-25 02:56 → OBSVTOIN 01-25 02:56 → 2NENU 01-25 03:55 → ICNU 01-25 06:06 → 2NENU 01-25 14:30 → 2NNU 01-31 14:20 → 3ANU 02-07 16:04
PROVIDERS: ADMIT Internal Medicine; ATTEND Internal Medicine

== ENCOUNTER 2021-10-31 04:27 | Inpatient (IN) ==
[2021-10-31] MEDS ORDERED: Acetaminophen 325 MG TABLET PO PRN (09:53)
[2021-10-31] MEDS ORDERED: Naloxone 0.4 MG/ML INJ IVP PRN (09:53)
[2021-10-31] MEDS ORDERED: Vancomycin (wt based) 1,000 MG VIAL IVPB SCH (10:00)
[2021-10-31] MEDS ORDERED: Norepinephrine 4 MG/254 ML IV.SOLN IVC SCH (10:00)
[2021-10-31] MEDS ORDERED: Perflutren Lipid Microsphere 1.3 ML in 0.9 % Sodium Chloride 8.7 ML IVP PRN (10:03)
[2021-10-31] MEDS ORDERED: *HR* Metoprolol 5 MG/5 ML VIAL IVP PRN (10:38)
[2021-10-31] MEDS ORDERED: Piperacillin/Tazobactam 3.375 GM in 0.9 % Sodium Chloride Mini Bag 100 ML IVPB SCH (11:00)
[2021-10-31] MEDS: *HR* HYDROmorphone (PF) 1 MG/ML SYRINGE IVP PRN ×4 (11:27→22:32)
[2021-10-31] MEDS: Phenylephrine 20 MG in 0.9 % Sodium Chloride 250 ML IVC SCH ×4 (12:26→17:45)
[2021-10-31] MEDS ORDERED: 0.9 % Sodium Chloride 250 ML ONE ×2 (12:33→23:30)
[2021-10-31 13:50] LABS: Amphetamine Screen,Urine Negative ng/mL (Cutoff=1000); Barbiturate Screen,Urine Negative ng/mL (Cutoff=200); Benzodiazepines Screen,Urine Positive ng/mL (Cutoff=200); Cannabinoid Screen,Urine Negative ng/mL (Cutoff = 50); Cocaine Screen,Urine Negative ng/mL (Cutoff= 300); Opiate Screen,Urine Positive ng/mL (Cutoff=300); Phencyclidine Screen,Urine Negative ng/mL (Cutoff=25)
[2021-10-31 13:59] LABS: Alanine Aminotransferase 5 Units/L (7-52); Albumin 2.4 g/dL (3.5-5.7); Albumin/Globulin Ratio 0.9 (1.1-2.2); Alkaline Phosphatase 55 Units/L (34-104); Aspartate Amino Transferase 12 Units/L (13-39); BUN/Creatinine Ratio 28 (6-26); Bilirubin,Total 2.7 mg/dL (0.3-1.0); Blood Urea Nitrogen 26 mg/dL (6-20); Calcium 7.3 mg/dL (8.6-10.3); Carbon Dioxide 17 mEq/L (23-29); Chloride 111 mEq/L (98-107); Globulin 2.6 g/dL (2.4-3.5); Glucose 88 mg/dL (70-105); Magnesium 1.6 mg/dL (1.6-2.6); Osmolality,Calculated 280 (280-300); Potassium 3.4 mEq/L (3.5-5.1); Sodium 133 mEq/L (136-145); eGFR For African Americans > 60 (> 60); eGFR For Non-African Americans > 60 (> 60)
[2021-10-31] MEDS: CeFAZolin 2,000 MG/120 ML BAG IVPB SCH (15:42)
[2021-10-31] MEDS ORDERED: diazePAM 5 MG TABLET PO PRN (18:45)
[2021-10-31] MEDS: QUEtiapine Fumarate 100 MG TABLET PO SCH (19:45)
[2021-10-31] MEDS: Gabapentin 300 MG CAPSULE PO SCH (19:45)
[2021-10-31] MEDS: Phenylephrine 100 MG in 0.9 % Sodium Chloride 240 ML IVC SCH (19:46)
[2021-10-31 22:56] LABS: Basophils % 0.4 %; Eosinophils % 0.1 %
[2021-10-31 22:58] LABS: Hematocrit 32.1 % (35.3-44.9); Hemoglobin 10.8 g/dL (11.5-15.4); Immature Granulocytes % 2.8 % (0-4); Immature Platelets 21.4 % (1.1-6.1); Lymphocytes # 0.5 K/mcL (0.6-4.6); Lymphocytes % 6.6 %; Mean Corpuscular HGB Conc 33.6 g/dL (31.6-35.5); Mean Corpuscular Hemoglobin 28.5 pg (28.0-33.3); Mean Corpuscular Volume 84.7 fL (83.0-100.0); Monocytes # 0.5 K/mcL (0.0-1.3); Monocytes % 6.4 %; Red Blood Count 3.79 M/mcL (3.82-4.97); Red Cell Distribution Width 15.2 % (11.5-14.5); Segmented Neutrophils % 83.7 %; White Blood Count 7.8 K/mcL (4.3-11.1)
[2021-10-31 23:03] LABS: Neutrophils # 6.5 K/mcL (1.6-8.9)
[2021-10-31 23:06] LABS: Platelet Count 10 K/mcL (140-400)
[2021-11-01] MEDS: *HR* HYDROmorphone (PF) 1 MG/ML SYRINGE IVP PRN ×6 (00:35→21:16)
[2021-11-01] MEDS ORDERED: 0.9 % Sodium Chloride 250 ML ONE (02:39)
[2021-11-01 03:57] LABS: Eosinophils % 0.2 %; Hemoglobin 10.6 g/dL (11.5-15.4); Lymphocytes % 8.9 %; Red Cell Distribution Width 15.2 % (11.5-14.5)
[2021-11-01 03:59] LABS: Basophils % 0.3 %; Hematocrit 32.1 % (35.3-44.9); Immature Granulocytes % 5.5 % (0-4); Lymphocytes # 0.6 K/mcL (0.6-4.6); Mean Corpuscular Hemoglobin 28.3 pg (28.0-33.3); Mean Corpuscular Volume 85.8 fL (83.0-100.0); Monocytes # 0.4 K/mcL (0.0-1.3); Monocytes % 6.6 %; Neutrophils # 5.1 K/mcL (1.6-8.9); Red Blood Count 3.74 M/mcL (3.82-4.97); Segmented Neutrophils % 78.5 %; White Blood Count 6.5 K/mcL (4.3-11.1)
[2021-11-01 04:00] LABS: Platelet Count 16 K/mcL (140-400)
[2021-11-01 04:06] LABS: BUN/Creatinine Ratio 22 (6-26); Blood Urea Nitrogen 22 mg/dL (6-20); Calcium 7.7 mg/dL (8.6-10.3); Carbon Dioxide 17 mEq/L (23-29); Chloride 112 mEq/L (98-107); Glucose 94 mg/dL (70-105); Magnesium 2.1 mg/dL (1.6-2.6); Osmolality,Calculated 281 (280-300); Potassium 3.3 mEq/L (3.5-5.1); Sodium 134 mEq/L (136-145); eGFR For African Americans > 60 (> 60); eGFR For Non-African Americans > 60 (> 60)
[2021-11-01 04:17] LABS: BUN/Creatinine Ratio 21 (6-26); Blood Urea Nitrogen 23 mg/dL (6-20); Calcium 7.7 mg/dL (8.6-10.3); Carbon Dioxide 17 mEq/L (23-29); Chloride 112 mEq/L (98-107); Glucose 104 mg/dL (70-105); Osmolality,Calculated 284 (280-300); Potassium 3.3 mEq/L (3.5-5.1); Sodium 135 mEq/L (136-145); eGFR For African Americans > 60 (> 60); eGFR For Non-African Americans 58 (> 60)
[2021-11-01] MEDS: Phenylephrine 100 MG in 0.9 % Sodium Chloride 240 ML IVC SCH (05:45)
[2021-11-01] MEDS: Gabapentin 300 MG CAPSULE PO SCH ×3 (08:28→21:19)
[2021-11-01] MEDS: Magnesium Oxide 400 MG TABLET PO SCH (08:28)
[2021-11-01] MEDS: CeFAZolin 2,000 MG/120 ML BAG IVPB SCH ×2 (10:46)
[2021-11-01 11:00] LABS: Eosinophils % 0.3 %; Red Cell Distribution Width 15.4 % (11.5-14.5)
[2021-11-01] MEDS ORDERED: Nafcillin 2,000 MG in 0.9 % Sodium Chloride Mini Bag 100 ML IVPB SCH (11:00)
[2021-11-01 11:01] LABS: Basophils % 0.6 %; Hematocrit 30.8 % (35.3-44.9); Hemoglobin 10.2 g/dL (11.5-15.4); Immature Platelets 17.3 % (1.1-6.1); Lymphocytes # 0.9 K/mcL (0.6-4.6); Lymphocytes % 14.1 %; Mean Corpuscular HGB Conc 33.1 g/dL (31.6-35.5); Mean Corpuscular Hemoglobin 28.3 pg (28.0-33.3); Mean Corpuscular Volume 85.6 fL (83.0-100.0); Monocytes # 0.8 K/mcL (0.0-1.3); Monocytes % 11.6 %; Neutrophils # 4.3 K/mcL (1.6-8.9); Segmented Neutrophils % 66.4 %; White Blood Count 6.5 K/mcL (4.3-11.1)
[2021-11-01 11:20] LABS: BUN/Creatinine Ratio 21 (6-26); Blood Urea Nitrogen 20 mg/dL (6-20); Calcium 7.6 mg/dL (8.6-10.3); Carbon Dioxide 19 mEq/L (23-29); Chloride 110 mEq/L (98-107); Glucose 98 mg/dL (70-105); Osmolality,Calculated 281 (280-300); Potassium 3.7 mEq/L (3.5-5.1); Sodium 134 mEq/L (136-145); eGFR For African Americans > 60 (> 60); eGFR For Non-African Americans > 60 (> 60)
[2021-11-01 11:39] LABS: Platelet Count 16 K/mcL (140-400)
[2021-11-01 11:40] LABS: Platelet Estimate Marked Decrease (Normal)
[2021-11-01] MEDS ORDERED: Albumin Human 5% 12.5 GM/250 ML IV.SOLN IVPB ONE (11:41)
[2021-11-01] MEDS: Gentamicin 70 MG in 0.9 % Sodium Chloride 100 ML IVPB SCH ×2 (12:18→21:18)
[2021-11-01] MEDS: Nafcillin 2,000 MG in 0.9 % Sodium Chloride Mini Bag 100 ML IVPB SCH ×3 (12:37→21:15)
[2021-11-01] MEDS: Furosemide 40 MG/4 ML VIAL IVP ONE (13:47)
[2021-11-01] MEDS: *HR* Metoprolol 5 MG/5 ML VIAL IVP PRN (18:02)
[2021-11-01] MEDS: QUEtiapine Fumarate 100 MG TABLET PO SCH (21:19)
[2021-11-02] MEDS: Nafcillin 2,000 MG in 0.9 % Sodium Chloride Mini Bag 100 ML IVPB SCH ×6 (01:28→21:21)
[2021-11-02] MEDS: *HR* HYDROmorphone (PF) 1 MG/ML SYRINGE IVP PRN ×4 (01:30→21:33)
[2021-11-02 03:28] LABS: Hemoglobin 9.5 g/dL (11.5-15.4)
[2021-11-02 03:30] LABS: Hematocrit 28.3 % (35.3-44.9); Immature Platelets 18.6 % (1.1-6.1); Mean Corpuscular HGB Conc 33.6 g/dL (31.6-35.5); Mean Corpuscular Hemoglobin 28.2 pg (28.0-33.3); Red Blood Count 3.37 M/mcL (3.82-4.97); Red Cell Distribution Width 15.2 % (11.5-14.5); White Blood Count 3.4 K/mcL (4.3-11.1)
[2021-11-02 03:34] LABS: Platelet Count 13 K/mcL (140-400)
[2021-11-02 03:48] LABS: BUN/Creatinine Ratio 18 (6-26); Blood Urea Nitrogen 22 mg/dL (6-20); Calcium 7.8 mg/dL (8.6-10.3); Carbon Dioxide 19 mEq/L (23-29); Chloride 110 mEq/L (98-107); Glucose 94 mg/dL (70-105); Osmolality,Calculated 285 (280-300); Potassium 3.6 mEq/L (3.5-5.1); Sodium 136 mEq/L (136-145); eGFR For African Americans > 60 (> 60); eGFR For Non-African Americans 50 (> 60)
[2021-11-02] MEDS: Gentamicin 70 MG in 0.9 % Sodium Chloride 100 ML IVPB SCH ×2 (04:23→12:02)
[2021-11-02] MEDS ORDERED: Potassium Chloride Elixir 20 MEQ/15 ML UDC PO ONE (05:30)
[2021-11-02] MEDS: Gabapentin 300 MG CAPSULE PO SCH ×3 (08:56→21:21)
[2021-11-02] MEDS: Magnesium Oxide 400 MG TABLET PO SCH (08:57)
[2021-11-02] MEDS: *HR* Metoprolol 5 MG/5 ML VIAL IVP PRN (09:04)
[2021-11-02] MEDS ORDERED: Furosemide 40 MG/4 ML VIAL IVP ONE (09:36)
[2021-11-02] MEDS ORDERED: Albumin Human 5% 12.5 GM/250 ML IV.SOLN IVPB ONE (09:36)
[2021-11-02 11:14] LABS: Alanine Aminotransferase < 3 Units/L (7-52); Albumin 2.5 g/dL (3.5-5.7); Alkaline Phosphatase 71 Units/L (34-104); Aspartate Amino Transferase 18 Units/L (13-39); Bilirubin,Direct 5.3 mg/dL (0.0-0.2); Bilirubin,Indirect 2.4 mg/dL (0.0-1.0); Bilirubin,Total 7.7 mg/dL (0.3-1.0); Globulin 2.4 g/dL (2.4-3.5); Total Protein 4.9 g/dL (6.4-8.9)
[2021-11-02] MEDS: Furosemide 40 MG/4 ML VIAL IVP ONE (14:13)
[2021-11-02] MEDS ORDERED: Iopamidol - 370 500 ML MLS IVP ONE (15:17)
[2021-11-02] MEDS ORDERED: Albuterol 2.5 MG/3 ML NEBULIZER IH PRN (15:44)
[2021-11-02] MEDS: Ipratropium/Albuterol Neb 3 ML IH SCH ×2 (16:43→21:48)
[2021-11-02] MEDS ORDERED: 0.9 % Sodium Chloride 250 ML ONE (16:52)
[2021-11-02 17:03] LABS: VBG HCO3 19 mEq/L (21-27); VBG PCO2 37 mmHg (41-51); VBG PH 7.33 pH Units (7.32-7.42); VBG PO2 65 mmHg (25-50)
[2021-11-02] MEDS: Phenylephrine 100 MG in 0.9 % Sodium Chloride 240 ML IVC SCH (20:34)
[2021-11-02] MEDS: QUEtiapine Fumarate 100 MG TABLET PO SCH (21:21)
[2021-11-03] MEDS: *HR* HYDROmorphone (PF) 1 MG/ML SYRINGE IVP PRN ×3 (01:34→09:32)
[2021-11-03] MEDS: Nafcillin 2,000 MG in 0.9 % Sodium Chloride Mini Bag 100 ML IVPB SCH ×6 (01:34→20:52)
[2021-11-03] MEDS: Ipratropium/Albuterol Neb 3 ML IH SCH ×4 (03:47→21:47)
[2021-11-03 04:37] LABS: Bilirubin,Urine Negative (Negative); Blood,Urine Negative (Negative); Clarity,Urine Clear (Clear); Color,Urine Yellow (Yellow); Glucose,Urine (UA) Normal (Normal); Ketones,Urine Negative (Negative); Leukocyte Esterase,Urine Negative (Negative); Nitrite,Urine Negative (Negative); PH,Urine 6.5 pH Units (5.0-8.0); Protein,Urine Negative (Neg-Trace); Specific Gravity,Urine 1.016 (1.010-1.025); Urobilinogen,Urine Normal (Normal)
[2021-11-03 04:39] LABS: Hematocrit 29.6 % (35.3-44.9); Hemoglobin 9.8 g/dL (11.5-15.4); Immature Platelets 26.8 % (1.1-6.1); Mean Corpuscular HGB Conc 33.1 g/dL (31.6-35.5); Mean Corpuscular Hemoglobin 27.9 pg (28.0-33.3); Mean Corpuscular Volume 84.3 fL (83.0-100.0); Red Blood Count 3.51 M/mcL (3.82-4.97); Red Cell Distribution Width 15.3 % (11.5-14.5); White Blood Count 3.3 K/mcL (4.3-11.1)
[2021-11-03 04:41] LABS: Platelet Count 17 K/mcL (140-400)
[2021-11-03 04:46] LABS: Sodium, Urine 96.5 mEq/L
[2021-11-03 04:57] LABS: Alanine Aminotransferase < 3 Units/L (7-52); Albumin 2.5 g/dL (3.5-5.7); Albumin/Globulin Ratio 0.9 (1.1-2.2); Alkaline Phosphatase 65 Units/L (34-104); Aspartate Amino Transferase 16 Units/L (13-39); BUN/Creatinine Ratio 18 (6-26); Bilirubin,Indirect 2.5 mg/dL (0.0-1.0); Bilirubin,Total 8.5 mg/dL (0.3-1.0); Blood Urea Nitrogen 30 mg/dL (6-20); Calcium 7.7 mg/dL (8.6-10.3); Carbon Dioxide 19 mEq/L (23-29); Chloride 105 mEq/L (98-107); Globulin 2.7 g/dL (2.4-3.5); Glucose 87 mg/dL (70-105); Magnesium 1.9 mg/dL (1.6-2.6); Osmolality,Calculated 286 (280-300); Potassium 3.1 mEq/L (3.5-5.1); Sodium 135 mEq/L (136-145); Total Protein 5.2 g/dL (6.4-8.9); eGFR For African Americans 43 (> 60); eGFR For Non-African Americans 36 (> 60)
[2021-11-03] MEDS ORDERED: Potassium Phosphate 44 MEQ in 0.9 % Sodium Chloride 250 ML IVPB PRN (07:44)
[2021-11-03] MEDS ORDERED: Calcium Gluconate 1gm/50mL 1 GM/50 ML BAG IVPB PRN (07:44)
[2021-11-03] MEDS: Potassium Chloride 40 MEQ/200 ML BAG IVPB PRN (08:45)
[2021-11-03] MEDS: Gabapentin 300 MG CAPSULE PO SCH ×3 (09:20→20:22)
[2021-11-03] MEDS: Magnesium Oxide 400 MG TABLET PO SCH (09:20)
[2021-11-03] MEDS: Gentamicin 70 MG in 0.9 % Sodium Chloride 100 ML IVPB SCH (12:23)
[2021-11-03] MEDS ORDERED: diazePAM 5 MG TABLET PO ONE (15:00)
[2021-11-03] MEDS: *HR* HYDROmorphone 2 MG TABLET PO SCH (16:04)
[2021-11-03] MEDS ORDERED: Albumin Human 5% 12.5 GM/250 ML IV.SOLN IVPB ONE (16:07)
[2021-11-03] MEDS ORDERED: Furosemide 40 MG/4 ML VIAL IVP ONE (16:07)
[2021-11-03 16:44] LABS: VBG Ionized Calcium 1.02 mmol/L (1.15-1.35)
[2021-11-03 16:46] LABS: Prothrombin Time 22.6 Seconds (9.4-12.1)
[2021-11-03] MEDS ORDERED: *HR* HYDROmorphone 2 MG TABLET PO SCH (18:00)
[2021-11-03] MEDS: Phenylephrine 100 MG in 0.9 % Sodium Chloride 240 ML IVC SCH (19:22)
[2021-11-03] MEDS: diazePAM 5 MG TABLET PO SCH (20:22)
[2021-11-03] MEDS: QUEtiapine Fumarate 100 MG TABLET PO SCH (20:22)
[2021-11-03] MEDS ORDERED: diazePAM 5 MG TABLET PO SCH (21:00)
[2021-11-04] MEDS: *HR* HYDROmorphone 2 MG TABLET PO SCH ×2 (00:12→06:06)
[2021-11-04] MEDS: Ipratropium/Albuterol Neb 3 ML IH SCH ×4 (03:36→23:13)
[2021-11-04 04:09] LABS: Basophils % 0.6 %; Eosinophils % 1.2 %; Lymphocytes % 22.6 %
[2021-11-04 04:11] LABS: Hematocrit 27.5 % (35.3-44.9); Hemoglobin 9.2 g/dL (11.5-15.4); Immature Granulocytes % 0.6 % (0-4); Lymphocytes # 0.8 K/mcL (0.6-4.6); Mean Corpuscular HGB Conc 33.5 g/dL (31.6-35.5); Mean Corpuscular Hemoglobin 27.9 pg (28.0-33.3); Mean Corpuscular Volume 83.3 fL (83.0-100.0); Monocytes # 0.2 K/mcL (0.0-1.3); Monocytes % 6.5 %; Neutrophils # 2.3 K/mcL (1.6-8.9); Red Cell Distribution Width 15.5 % (11.5-14.5); Segmented Neutrophils % 68.5 %; White Blood Count 3.4 K/mcL (4.3-11.1)
[2021-11-04 04:21] LABS: Platelet Count 29 K/mcL (140-400)
[2021-11-04 04:30] LABS: Alanine Aminotransferase < 3 Units/L (7-52); Albumin 2.6 g/dL (3.5-5.7); Albumin/Globulin Ratio 0.9 (1.1-2.2); Alkaline Phosphatase 59 Units/L (34-104); Aspartate Amino Transferase 13 Units/L (13-39); BUN/Creatinine Ratio 17 (6-26); Bilirubin,Total 8.4 mg/dL (0.3-1.0); Blood Urea Nitrogen 30 mg/dL (6-20); Calcium 7.5 mg/dL (8.6-10.3); Carbon Dioxide 21 mEq/L (23-29); Chloride 102 mEq/L (98-107); Glucose 90 mg/dL (70-105); Osmolality,Calculated 284 (280-300); Sodium 134 mEq/L (136-145); Total Protein 5.6 g/dL (6.4-8.9); eGFR For African Americans 40 (> 60); eGFR For Non-African Americans 33 (> 60)
[2021-11-04 04:39] LABS: Platelet Estimate Marked Decrease (Normal)
[2021-11-04] MEDS: Potassium Chloride 40 MEQ/200 ML BAG IVPB PRN (05:03)
[2021-11-04] MEDS: Nafcillin 2,000 MG in 0.9 % Sodium Chloride Mini Bag 100 ML IVPB SCH ×6 (05:54→18:30)
[2021-11-04] MEDS: Gabapentin 300 MG CAPSULE PO SCH (08:32)
[2021-11-04] MEDS: Magnesium Oxide 400 MG TABLET PO SCH (08:32)
[2021-11-04] MEDS: diazePAM 5 MG TABLET PO SCH (08:33)
[2021-11-04] MEDS: Gentamicin 70 MG in 0.9 % Sodium Chloride 100 ML IVPB SCH (11:22)
[2021-11-04] MEDS ORDERED: *HR* HYDROmorphone 2 MG TABLET PO SCH ×2 (11:30→18:00)
[2021-11-04] MEDS ORDERED: Albuterol 2.5 MG/3 ML NEBULIZER IH PRN (12:43)
[2021-11-04] MEDS ORDERED: Potassium Phosphate 44 MEQ in 0.9 % Sodium Chloride 250 ML IVPB PRN (12:43)
[2021-11-04] MEDS ORDERED: Perflutren Lipid Microsphere 1.3 ML in 0.9 % Sodium Chloride 8.7 ML IVP PRN (12:43)
[2021-11-04] MEDS ORDERED: Naloxone 0.4 MG/ML INJ IVP PRN (12:43)
[2021-11-04] MEDS ORDERED: Acetaminophen 325 MG TABLET PO PRN (12:43)
[2021-11-04] MEDS ORDERED: Potassium Chloride 40 MEQ/200 ML BAG IVPB PRN (12:43)
[2021-11-04] MEDS ORDERED: Calcium Gluconate 1gm/50mL 1 GM/50 ML BAG IVPB PRN (12:43)
[2021-11-04] MEDS ORDERED: Gabapentin 300 MG CAPSULE PO SCH (15:00)
[2021-11-04 17:12] LABS: Calcium 7.2 mg/dL (8.6-10.3); Potassium 2.9 mEq/L (3.5-5.1)
[2021-11-04 18:56] VITALS: BP 96/64; PULSE 85; TEMP 97.8; O2SAT 97
[2021-11-04 19:02] LABS: Adenovirus Not Detected (Not Detect); Bordetella Pertussis Not Detected (Not Detect); Chlamydophila pneumoniae Not Detected (Not Detect); Coronavirus 229E Not Detected (Not Detect); Coronavirus HKU1 Not Detected (Not Detect); Coronavirus NL63 Not Detected (Not Detect); Coronavirus OC43 Not Detected (Not Detect); Human Metapneumovirus Not Detected (Not Detect); Human Rhinovirus/Enterovirus Not Detected (Not Detect); Influenza A Subtype 2009 H1 Not Detected (Not Detect); Influenza B Not Detected (Not Detect); Mycoplasma pneumoniae Not Detected (Not Detect); Parainfluenza Virus 1 Not Detected (Not Detect); Parainfluenza Virus 2 Not Detected (Not Detect); Parainfluenza Virus 3 Not Detected (Not Detect); Parainfluenza Virus 4 Not Detected (Not Detect); Respiratory Syncytial Virus Not Detected (Not Detect); SARS-CoV-2 Not Detected (Not Detect)
[2021-11-04] MEDS ORDERED: QUEtiapine Fumarate 100 MG TABLET PO SCH (21:00)
[2021-11-05] MEDS ORDERED: Albumin 25% 25gram/100mL 25 GM/100 ML IV.SOLN IVPB SCH
[2021-11-05] MEDS: Ipratropium/Albuterol Neb 3 ML IH SCH (03:59)
[2021-11-05] MEDS ORDERED: diazePAM 5 MG TABLET PO SCH (09:00)
[2021-11-05] MEDS ORDERED: Magnesium Oxide 400 MG TABLET PO SCH (09:00)
[2021-11-05] MEDS ORDERED: Gentamicin 70 MG in 0.9 % Sodium Chloride 100 ML IVPB SCH (12:00)
== END 2021-11-04 19:20 | disposition short-term general hospital (02) | DRG 720 ==
LOC: ICNU → 2ANU 11-04 13:53
PROVIDERS: ADMIT Internal Medicine; ATTEND Internal Medicine